=== PATIENT | female | born 1940 | race Caucasian/White ===

== ENCOUNTER 2016-09-25 14:45 | Emergency (ER) | payer MEDICARE, OTHER ==
[2016-09-25 19:21] LABS: Hematocrit 39 % (35-47); Hemoglobin 13.3 g/dl (12.0-16.0); Mean Corpuscular HGB Conc 34 g/dl (31-36); Mean Corpuscular Hemoglobin 32 pg (27-31); Mean Corpuscular Volume 95 fL (80-97); Mean Platelet Volume 8 um3 (7.4-10.4); Red Blood Count 4.12 10^6/ul (4.0-5.4); Red Cell Distribution Width 14 % (10.5-15); White Blood Count 8.5 10^3/ul (3.5-10.8)
[2016-09-25 19:39] LABS: Albumin 4.2 g/dL (3.2-5.2); Calcium 9.8 mg/dL (8.6-10.3); EGFR African American 86.9 (>60); EGFR Non-African American 67.6 (>60); Globulin 2.6 g/dL (2-4); Potassium 3.9 mmol/L (3.5-5.0); Total Bilirubin 0.3 mg/dL (0.2-1.0); Total Protein 6.8 g/dL (6.4-8.9)
[2016-09-25 20:32] VITALS: BP 162/96
--- NOTE | 2016-09-25 21:52 | ED ---
Desmond Steven Erika, scribed for True Miller MD on 09/25/16 at 1925 . GI/ HPI - HPI Summary HPI Summary: Patient is a 76-year-old female presenting to the ED with a CC of rectal bleeding starting 2 days ago. Pt reports that she has not noted blood in her stool, but notes blood in the toilet bowel with a BM and notes blood when wiping after a stool. She denies rectal pain or abdominal pain. She does note some recent constipation and straining. Pt takes a daily aspirin, but no other blood thinners. Hx colonoscopy January [address] Lozada - nothing abnormal was found. - History of Current Complaint Chief Complaint: EDRectalPain Time Seen by Provider: 09/25/16 18:38 Stated Complaint: RECTAL BLEEDING Hx Obtained From: Patient Onset/Duration: Started Days Ago, Atraumatic, Still Present Timing: Intermittent - with BMs Severity: Moderate Pain Intensity: 0 Associated Signs and Symptoms: Positive: Bright Red Blood w/Stool. Negative: Rectal Pain, Abdominal Pain Aggravating Factor(s): Straining - possibly Alleviating Factor(s): Nothing - Allergy/Home Medications Allergies/Adverse Reactions: Allergies Allergy/AdvReac Type Severity Reaction Status Date / Time No Known Allergies Allergy Verified 08/18/16 16:45 PMH/Surg Hx/FS Hx/Imm Hx Endocrine/Hematology History: Reports: Hx Anticoagulant Therapy - coumadin 4mg po daily, Hx Thyroid Disease, Other Endocrine/Hematological Disorders - Reynaud' s Syndrome Denies: Hx Diabetes, Hx Systemic Lupus Erythematosus Cardiovascular History: Reports: Hx Angina, Hx Coronary Artery Disease - STENT 1992, Hx Hypercholesterolemia, Hx Hypertension, Hx Pacemaker/ICD, Hx Valvular Heart Disease - MITRAL VALVE Denies: Hx Congestive Heart Failure Respiratory History: Reports: Hx Chronic Obstructive Pulmonary Disease (COPD) Denies: Hx Asthma GI History: Reports: Hx Gastroesophageal Reflux Disease, Other GI Disorders - Acalasia w/ esophageal surgery History: Denies: Hx Dialysis, Hx Renal Disease Musculoskeletal History: Denies: Hx Rheumatoid Arthritis Sensory History: Reports: Hx Cataracts - Has had surgery, Hx Contacts or Glasses Opthamlomology History: Reports: Hx Cataracts - Has had surgery, Hx Contacts or Glasses Neurological History: Reports: Hx Seizures - Cancer History Cancer Type, Location and Year: Right Breast Cancer over 10 years ago Hx Chemotherapy: Yes - in past Hx Radiation Therapy: Yes - in past - Surgical History Surgery Procedure, Year, and Place: lumpectomy right breast. surgery on esophaguscardiac. Pacemaker - Immunization History Date of Tetanus Vaccine: Unk Date of Influenza Vaccine: Fall 2012 Infectious Disease History: No Infectious Disease History: Denies: Traveled Outside the [place] in Last 30 Days - Family History Known Family History: Negative: Cardiac Disease - Social History Lives: With Family Alcohol Use: Daily Alcohol Amount: Glass of wine with dinner Hx Substance Use: No Substance Use Type: Reports: None Hx Tobacco Use: Yes Smoking Status (MU): Former Smoker - currently chews nicotine gum Type: Cigarettes Review of Systems Negative: Fever Gastrointestinal: Other - rectal bleeding Negative: Abdominal Pain All Other Systems Reviewed And Are Negative: Yes Physical Exam - Summary Physical Exam Summary: Constitutional: Comfortable, pleasant, alert HEENT: moist mucosa Neck: Soft, supple, no adenopathy, no edema Heart: S1, S2, RRR, no murmurs, rubs, or gallops. Noted that pt was tachycardic at 100 bpm on triage Lungs: clear, breathing comfortably, no wheezes, no rales Abdomen: Soft, flat, non-tender. Rectal: Exam chaperoned by Lena. No fissures, no obvious hemorrhoids. There is some evidence of older blood but no active bleeding. Extremities: No edema, calves non-tender Neurological: A&Ox3 Psychological: logical, coherent Triage Information Reviewed: Yes Vital Signs On Initial Exam: Initial Vitals Temp Pulse Resp BP Pulse Ox 98.4 F 100 16 109/59 98 09/25/16 15:36 09/25/16 15:36 09/25/16 15:36 09/25/16 15:36 09/25/16 15:36 Vital Signs Reviewed: Yes Diagnostics - Vital Signs Vital Signs Temp Pulse Resp BP Pulse Ox 09/25/16 15:36 98.4 F 100 16 109/59 98 - Laboratory Lab Results: Lab Results 09/25/16 09/25/16 09/25/16 Range/Units 18:50 18:50 18:50 WBC 8.5 (3.5-10.8) 10^3/ul RBC 4.12 (4.0-5.4) 10^6/ul Hgb 13.3 (12.0-16.0) g/dl Hct 39 (35-47) % MCV 95 (80-97) fL MCH 32 H (27-31) pg MCHC 34 (31-36) g/dl RDW 14 (10.5-15) % Plt Count 191 (150-450) 10^3/ul MPV 8 (7.4-10.4) um3 Neut % (Auto) 73.4 (38-83) % Lymph % (Auto) 16.8 L (25-47) % [place] % (Auto) 9.0 (1-9) % Eos % (Auto) 0.1 (0-6) % Baso % (Auto) 0.7 (0-2) % Absolute Neuts (auto) 6.3 (1.5-7.7) 10^3/ul Absolute Lymphs (auto) 1.4 (1.0-4.8) 10^3/ul Absolute Monos (auto) 0.8 (0-0.8) 10^3/ul Absolute Eos (auto) 0 (0-0.6) 10^3/ul Absolute Basos (auto) 0.1 (0-0.2) 10^3/ul Absolute Nucleated RBC 0 10^3/ul Nucleated RBC % 0 INR (Anticoag Therapy) 0.81 L (0.89-1.11) APTT 26.4 (26.0-36.3) seconds Sodium 133 (133-145) mmol/L Potassium 3.9 (3.5-5.0) mmol/L Chloride 99 L (101-111) mmol/L Carbon Dioxide 27 (22-32) mmol/L Anion Gap 7 (2-11) mmol/L BUN 23 (6-24) mg/dL Creatinine 0.82 (0.51-0.95) mg/dL Est GFR ( Amer) 86.9 (>60) Est GFR (Non-Af Amer) 67.6 (>60) BUN/Creatinine Ratio 28.0 H (8-20) Glucose 67 L (70-100) mg/dL Calcium 9.8 (8.6-10.3) mg/dL Total Bilirubin 0.30 (0.2-1.0) mg/dL AST 25 (13-39) U/L ALT 16 (7-52) U/L Alkaline Phosphatase 80 (34-104) U/L Total Protein 6.8 (6.4-8.9) g/dL Albumin 4.2 (3.2-5.2) g/dL Globulin 2.6 (2-4) g/dL Albumin/Globulin Ratio 1.6 (1-3) Result Diagrams: 09/25/16 18:50 09/25/16 18:50 Lab Statement: Any lab studies that have been ordered have been reviewed, and results considered in the medical decision making process. - EKG 19:01 EKG Interpretation: Paced rhythm at 95 bpm Re-Evaluation - Re-Evaluation First Eval Re-Evaluation Time: 19:58 Comment: Discussed lab results and discharge plan GIGU Course/Dx - Course Assessment/Plan: She has had GI bleed for the past 2 days. She does not describe severe or scary quantities of blood. Currently the blood that she does have in the rectal vault appears quite old. She has had a colonoscopy as early as January without any findings. She is on aspirin which we will have her hold right now. Noted tachycardia of 100 bpm on triage, but currently and without intervention, her heart rate is normal. Her H&H is very re-assuring. This is likely bleeding within the rectal vault, she has no pain or other symptoms. She will follow up with GI this week. Should she develop any more bleeding over the weekend, I informed her that I am here and would be happy to evaluate her. - Diagnoses Provider Diagnoses: Rectal bleeding Discharge - Discharge Plan Condition: Good Disposition: HOME Patient Education Materials: Rectal Bleeding (ED) Referrals: Demetrio Snell MD [Medical Doctor] - 5 Days The documentation as recorded by the Desmond watson Erika accurately reflects the service I personally performed and the decisions made by me, True Miller MD. Addendum entered and electronically signed by Nabila Hathaway PA 09/27/16 06: 45: ED Addendum Addendum: Stool occult blood present. Blood was present on exam and patient is aware and is following up with GI this week.
== END 2016-09-25 20:31 | disposition home or self-care (01) ==
LOC: ED 14:45
DX: K92.1 Melena (principal); J44.9 Chronic obstructive pulmonary disease, unspecified; Z87.891 Personal history of nicotine dependence; Z79.82 Long term (current) use of aspirin; Z79.01 Long term (current) use of anticoagulants; I25.10 Atherosclerotic heart disease of native coronary artery without angina pectoris; E78.00 Pure hypercholesterolemia, unspecified; K21.9 Gastro-esophageal reflux disease without esophagitis; Z85.3 Personal history of malignant neoplasm of breast
CPT/HCPCS: 36415; 80053; 82272; 85025; 85610; 85730; 93005; 99283

== ENCOUNTER 2016-10-20 12:04 | Emergency (ER) | payer MEDICARE, OTHER ==
--- NOTE | 2016-10-20 12:43 | ED ---
Head Injury - HPI Summary HPI Summary: Patient presents for evaluation of facial injury. Patient was feeling well and fell down. She has not had any specific complaints, but does not recall preceding events. Denies LOC, N, V, WALLACE diplopia. 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 Machine Operator - Mechanism Of Injury: Fall From A Standing Position Onset/Duration: Started Minutes Ago Onset of Pain: Immediate Severity Currently: None Severity Initially: Mild Pain Intensity: 4 - Allergies/Home Medications Allergies/Adverse Reactions: Allergies Allergy/AdvReac Type Severity Reaction Status Date / Time No Known Allergies Allergy Verified 08/18/16 16:45 PMH/Surg Hx/FS Hx/Imm Hx Endocrine/Hematology History: Reports: Hx Anticoagulant Therapy - coumadin 4mg po daily, Hx Thyroid Disease, Other Endocrine/Hematological Disorders - Reynaud' s Syndrome Denies: Hx Diabetes, Hx Systemic Lupus Erythematosus Cardiovascular History: Reports: Hx Angina, Hx Coronary Artery Disease - STENT 1992, Hx Hypercholesterolemia, Hx Hypertension, Hx Pacemaker/ICD, Hx Valvular Heart Disease - MITRAL VALVE Denies: Hx Congestive Heart Failure Respiratory History: Reports: Hx Chronic Obstructive Pulmonary Disease (COPD) Denies: Hx Asthma GI History: Reports: Hx Gastroesophageal Reflux Disease, Other GI Disorders - Acalasia w/ esophageal surgery History: Denies: Hx Dialysis, Hx Renal Disease Musculoskeletal History: Denies: Hx Rheumatoid Arthritis Sensory History: Reports: Hx Cataracts - Has had surgery, Hx Contacts or Glasses Opthamlomology History: Reports: Hx Cataracts - Has had surgery, Hx Contacts or Glasses Neurological History: Reports: Hx Seizures - Cancer History Cancer Type, Location and Year: Right Breast Cancer over 10 years ago Hx Chemotherapy: Yes - in past Hx Radiation Therapy: Yes - in past - Surgical History Surgery Procedure, Year, and Place: lumpectomy right breast. surgery on esophaguscardiac. Pacemaker - Immunization History Date of Tetanus Vaccine: Unk Date of Influenza Vaccine: Fall 2012 Infectious Disease History: No Infectious Disease History: Denies: Traveled Outside the [place] in Last 30 Days - Family History Known Family History: Negative: Cardiac Disease - Social History Alcohol Use: Daily Alcohol Amount: Glass of wine with dinner Hx Substance Use: No Substance Use Type: Reports: None Hx Tobacco Use: Yes Smoking Status (MU): Former Smoker - currently chews nicotine gum Type: Cigarettes Review of Systems Negative: Fever, Chills Negative: Blurred Vision, Diplopia Cardiovascular: Negative Negative: Palpitations, Chest Pain Respiratory: Negative Negative: Shortness Of Breath Gastrointestinal: Negative Negative: Abdominal Pain Musculoskeletal: Negative Negative: Arthralgia Negative: Headache, Weakness, Paresthesia, Numbness, Syncope All Other Systems Reviewed And Are Negative: Yes Physical Exam Triage Information Reviewed: Yes Vital Signs On Initial Exam: Initial Vitals Temp Pulse Resp BP Pulse Ox 99.6 F 100 18 153/92 95 10/20/16 12:23 10/20/16 12:23 10/20/16 12:23 10/20/16 12:23 10/20/16 12:23 Vital Signs Reviewed: Yes Appearance: Positive: Well-Appearing, No Pain Distress, Well-Nourished Skin: Positive: Warm, Skin Color Reflects Adequate Perfusion, Dry, Other - 1 cm transverse apex of chin laceration through epidermis/dermis. No surrounding crepitus. Nontender L chest wall at pacemaker site. Head/Face: Positive: Normal Head/Face Inspection. Negative: TMJ Tenderness Eyes: Positive: Normal, EOMI, NATHEN ENT: Positive: Normal ENT inspection, Hearing grossly normal, Pharynx normal Neck: Positive: Supple Respiratory/Lung Sounds: Positive: Clear to Auscultation, Breath Sounds Present Cardiovascular: Positive: Normal, RRR, Pulses are Symmetrical in both Upper and Lower Extremities Abdomen Description: Positive: Nontender, No Organomegaly, Soft Musculoskeletal: Positive: Normal, Strength/ROM Intact Neurological: Positive: Normal, Sensory/Motor Intact, Alert, Oriented to Person Place, Time, CN Intact II-III, Reflexes Intact, Unable to Assess Gait, Other - No pain with passive ROM of upper and lower extremity limbs. Procedures - Laceration/Wound Repair 1 Location: face Description: Linear Anesthesia: Local - 0.5 cc of 1% Length, Depth and Shape: 1 cm transverse laceration through epidermis, dermis on the apex of chin. Betadine Prep?: Yes Irrigated w/ Saline (ccs): 20 Laceration/Wound Explored: clean Closure: Single Layer - Plain Gut 6-0 with 3 running sutures Debridement: minimal Number of Sutures: 3 Layer Closure?: No Sterile Dressing Applied?: Yes Diagnostics - Vital Signs Vital Signs Temp Pulse Resp BP Pulse Ox 10/20/16 12:23 99.6 F 100 18 153/92 95 - Laboratory Result Diagrams: 10/20/16 12:10 10/20/16 12:10 Lab Statement: Any lab studies that have been ordered have been reviewed, and results considered in the medical decision making process. - EKG No standard instances Cardiac Rate: NL EKG Rhythm: Sinus Rhythm ST Segment: Normal Ectopy: None EKG Comparison: No Significant Change - No change from Jul 2016. Head Injury Course/Dx - Diagnoses Differential Diagnosis/HQI/PQRI: Cerebral Contusion, Cervical Sprain, Concussion Without LOC, Contusion, Intracranial Bleed, Skull Fracture, Other - Unclear if this was a mechanical fall, but will CT head and neck first to evaluate for occult fx or ICH. is en route and will discuss with him afterwards to determine need for further evaluation of other medical cause of the fall. Provider Diagnoses: Facial laceration - Physician Notifications Discussed Care Of Patient With: Dr. Aponte recommended no change to regimen and office Fu with Dr. Shah. Discharge - Discharge Plan Condition: Improved Disposition: HOME Patient Education Materials: Facial Laceration (ED) Referrals: Liane Shah MD [Medical Doctor] - Tanmay Joseph MD [Primary Care Provider] -
--- NOTE | 2016-10-20 13:00 | RAD ---
HISTORY: Trauma, syncope COMPARISONS: August 18, 2016 TECHNIQUE: Multiple contiguous axial CT scans were obtained of the head without intravenous contrast. FINDINGS: HEMORRHAGE/INFARCT: There is no hemorrhage or acute infarct. MASSES/SHIFT: There is no mass or shift. EXTRA-AXIAL SPACES: There are no extra-axial fluid collections. SULCI AND VENTRICLES: The sulci and ventricles are normal in size and position for the patient's stated age. CEREBRUM: There is hypoattenuation of the periventricular and subcortical white matter. BRAINSTEM: There are no focal parenchymal abnormalities. CEREBELLUM: There are no focal parenchymal abnormalities. VESSELS: The vessels are grossly normal. PARANASAL SINUSES: The paranasal sinuses are clear. ORBITS: The orbits are unremarkable. BONES AND SOFT TISSUE: There is expansion of the clivus and occipital skull with expansion and sclerosis of the right frontal and parietal skull OTHER: None IMPRESSION: 1. NO ACUTE INTRACRANIAL PATHOLOGY. 2. CHRONIC SMALL VESSEL ISCHEMIC CHANGES. 3. PAGETOID CHANGES OF THE SKULL.
--- NOTE | 2016-10-20 13:05 | RAD ---
HISTORY: Trauma, syncope COMPARISONS: May 05, 2012, CT of the chest dated June 07, 2014 TECHNIQUE: Multiple contiguous axial CT scans were obtained of the cervical spine without intravenous contrast, with coronal and sagittal multiplanar reformations. FINDINGS: BRAIN: The visualized brain is unremarkable CENTRAL CANAL: Evaluation of the central canal is limited on CT technique; however, there is no obvious canalicular mass or epidural hemorrhage. ALIGNMENT: There is trace anterolisthesis of C3 on C4. This is stable. VERTEBRAL BODIES: Again noted is expansion sclerosis of the occipital skull and clivus consistent with Paget's disease. There is no acute displaced fracture or dislocation. JOINTS: There is diffuse facet osteoarthritic change MUSCULATURE: Unremarkable INTERVERTEBRAL DISCS: There is diffuse loss of intervertebral disc height. AXIAL IMAGES: On axial images, there is neural foraminal narrowing at C5-C6 and C6-C7, similar to previous examinations. There is no osseous central canal stenosis. SOFT TISSUES: There is progressive pleural thickening of the right lung apex. The esophagus is patulous. OTHER: None. IMPRESSION: 1. NO ACUTE OSSEOUS INJURY TO THE CERVICAL SPINE. 2. DEGENERATIVE DISC DISEASE AND OSTEOARTHRITIS. 3. PAGET'S DISEASE OF THE SKULL BASE. 4. PROGRESSIVE RIGHT APICAL PLEURAL THICKENING. WHILE THIS MAY REFLECT PROGRESSION OF POSTRADIATION CHANGE, THIS IS INCOMPLETELY EVALUATED ON THE CURRENT EXAMINATION. RECOMMEND CORRELATION WITH CT OF THE CHEST IN THE NONACUTE SETTING
--- NOTE | 2016-10-20 14:06 | RAD ---
HISTORY: Chest pain COMPARISONS: September 18, 2015 VIEWS: 2: Frontal dual-energy and lateral views of the chest. FINDINGS: CARDIOMEDIASTINAL SILHOUETTE: The cardiomediastinal silhouette is normal. ROXANNE: The roxanne are normal. PLEURA: The costophrenic angles are sharp. No pleural abnormalities are noted. LUNG PARENCHYMA: There is hyperinflation with flattening of the diaphragm and expansion of the AP diameter of the chest. ABDOMEN: The upper abdomen is clear. There is no subphrenic gas. BONES AND SOFT TISSUES: No bone or soft tissue abnormalities are noted. OTHER: None. IMPRESSION: HYPERINFLATION, CONSISTENT WITH COPD. NO ACTIVE CARDIOPULMONARY DISEASE.
[2016-10-20 14:21] LABS: Hematocrit 44 % (35-47); Hemoglobin 14.8 g/dl (12.0-16.0); Mean Corpuscular HGB Conc 34 g/dl (31-36); Mean Corpuscular Hemoglobin 32 pg (27-31); Mean Corpuscular Volume 94 fL (80-97); Mean Platelet Volume 9 um3 (7.4-10.4); Red Blood Count 4.69 10^6/ul (4.0-5.4); Red Cell Distribution Width 14 % (10.5-15); White Blood Count 9.7 10^3/ul (3.5-10.8)
[2016-10-20 14:32] VITALS: BP 143/76
[2016-10-20 14:32] LABS: BUN/Creatinine Ratio 18.3 (8-20); Calcium 10.9 mg/dL (8.6-10.3); EGFR African American 75.2 (>60); EGFR Non-African American 58.5 (>60); Potassium 4.9 mmol/L (3.5-5.0)
== END 2016-10-20 14:55 | disposition home or self-care (01) ==
LOC: ED 12:04
DX: S01.81XA Laceration without foreign body of other part of head, initial encounter (principal); W19.XXXA Unspecified fall, initial encounter; Y93.9 Activity, unspecified; Y92.9 Unspecified place or not applicable; Y99.9 Unspecified external cause status
CPT/HCPCS: 12001; 36415; 70450; 71020; 72125; 80048; 80177; 85027; 93005; 99282

== ENCOUNTER 2017-03-21 19:55 | Observation (INO) | payer MEDICARE, OTHER ==
[2017-03-21] MEDS ORDERED: Morphine INJ* 2 MG/ML 1 ML SYRINGE IV ONE ×2 (20:32→21:35)
--- NOTE | 2017-03-21 20:43 | ED ---
Debbie Steven Rebecca, scribed for Caden Talavera MD on 03/21/17 at 203 . HPI Chest Pain - HPI Summary HPI Summary: Pt is a 76 y/o F who presents to ED c/o CP. Pain began approximately 2 hours ago at 1900 while sitting and has been intermittent since onset with episodes lasting minutes. Pain is in the left anterior region, stating it is "around the bottom of my heart." Pain is currently moderate, ranked 6/10 and characterized as sharp. Sx aggravated and alleviated by nothing, unchanged by deep breaths and movement. 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 Recent lobectomy to remove 1/3 of her lung, to treat lung CA, with Dr. Husain at [facility]. She was D/C 3 weeks ago and has a follow up appt with Dr. Dior tomorrow. - History of Current Complaint Chief Complaint: EDChestWallPain Time Seen by Provider: 03/21/17 20:25 Hx Obtained From: Patient, Family/Spare Fixer - Onset/Duration: Started Hours Ago - 2 hours ago, Still Present Time of Onset: 19:00 Timing: Intermittent, Lasting Minutes Current Severity: Moderate Pain Intensity: 6 Pain Scale Used: 0-10 Numeric Chest Pain Location: Left Anterior Character: Sharp/Stabbing Aggravating Factor(s): Nothing Alleviating Factor(s): Nothing Associated Signs and Symptoms: Positive: Other: - Elevated BP - Allergy/Home Medications Allergies/Adverse Reactions: Allergies Allergy/AdvReac Type Severity Reaction Status Date / Time No Known Allergies Allergy Verified 12/15/16 14:13 Bad table PMH/Surg Hx/FS Hx/Imm Hx Endocrine/Hematology History: Reports: Hx Anticoagulant Therapy - coumadin 4mg po daily, Hx Thyroid Disease, Other Endocrine/Hematological Disorders - Reynaud' s Syndrome Denies: Hx Diabetes, Hx Systemic Lupus Erythematosus Cardiovascular History: Reports: Hx Angina, Hx Coronary Artery Disease - STENT 1992, Hx Hypercholesterolemia, Hx Hypertension, Hx Pacemaker/ICD, Hx Valvular Heart Disease - MITRAL VALVE Denies: Hx Congestive Heart Failure Respiratory History: Reports: Hx Chronic Obstructive Pulmonary Disease (COPD) Denies: Hx Asthma GI History: Reports: Hx Gastroesophageal Reflux Disease, Other GI Disorders - Acalasia w/ esophageal surgery History: Denies: Hx Dialysis, Hx Renal Disease Musculoskeletal History: Denies: Hx Rheumatoid Arthritis Sensory History: Reports: Hx Cataracts - Has had surgery, Hx Contacts or Glasses Opthamlomology History: Reports: Hx Cataracts - Has had surgery, Hx Contacts or Glasses Neurological History: Reports: Hx Seizures - Cancer History Cancer Type, Location and Year: Right Breast Cancer over 10 years ago Hx Chemotherapy: Yes - in past Hx Radiation Therapy: Yes - in past - Surgical History Surgery Procedure, Year, and Place: lumpectomy right breast. surgery on esophaguscardiac. Pacemaker. 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 Positive: Chest Pain - Intermittent sharp pain All Other Systems Reviewed And Are Negative: Yes Physical Exam Triage Information Reviewed: Yes Vital Signs Reviewed: Yes Appearance: Positive: Pain Distress - mild discomfort, Thin, Cachectic Skin: Positive: Warm Head/Face: Positive: Normal Head/Face Inspection Eyes: Positive: NATHEN ENT: Positive: Hearing grossly normal Neck: Positive: Supple Respiratory/Lung Sounds: Positive: Decreased Breath Sounds - at bases Cardiovascular: Positive: RRR Abdomen Description: Positive: Nontender, Soft Bowel Sounds: Positive: Present Musculoskeletal: Positive: Strength/ROM Intact Neurological: Positive: Alert, Oriented to Person Place, Time Diagnostics - Laboratory Result Diagrams: 03/21/17 20:40 03/21/17 21:55 Lab Statement: Any lab studies that have been ordered have been reviewed, and results considered in the medical decision making process. - Radiology CXR Xray Interpretation: Positive (See Comments) - Elevated right hemidiaphragm for which a subpulmonic effusion is not excluded. Left lung field is clear. Pacemaker leads are in place. Right apical mass is present. Radiology Interpretation Completed By: Radiologist - CT CTA Chest CT Interpretation: No Acute Changes - No PE CT Interpretation Completed By: Radiologist - EKG 1 Cardiac Rate: NL - 70 bpm EKG Rhythm: Sinus Rhythm EKG Interpretation: No STEMI Re-Evaluation - Re-Evaluation First Eval Re-Evaluation Time: 23:42 Change: Unchanged Comment: Discussed plan to admit pt. Chest Pain Course/Dx - Course Assessment/Plan: Pt is a 76 y/o F who presents to ED c/o intermittent left anterior CP for 2 hours with episodes lasting minutes. Pain is currently moderate, ranked 6/10 and characterized as sharp. Sx unchanged by deep breaths and movement. 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 Recent lobectomy to remove 1/3 of her lung, to treat lung CA, at [facility]. She was D /C 3 weeks ago and has a follow up appt with Dr. Dior tomorrow. Troponin of 0.03, D-Dimer is >1050, Potassium of 2.2. CXR reveals: 'Elevated right hemidiaphragm for which a subpulmonic effusion is not excluded. Left lung field is clear. Pacemaker leads are in place. Right apical mass is present." EKG reveals no acute findings. CTA Chest shows no PE. Discussed care of pt with Dr. Styles, hospitalist, who accepts pt for admission. She will be admitted with Dx of hypokalemia and chest pain. She understands and agrees. - Diagnoses Provider Diagnoses: Hypokalemia, Chest pain - Provider Notifications Discussed Care Of Patient With: Brett Styles Time Discussed With Above Provider: 23:38 Instructed by Provider To: Admit As Inpatient - Accepts pt for admission. - Critical Care Time Critical Care Time: 30-74 min Discharge - Discharge Plan Condition: Fair Disposition: ADMITTED TO [facility] The documentation as recorded by the Debbie wtason Rebecca accurately reflects the service I personally performed and the decisions made by me, Caden Talavera MD.
[2017-03-21 20:50] LABS: Hematocrit 33 % (35-47); Mean Corpuscular HGB Conc 33 g/dl (31-36); Mean Corpuscular Hemoglobin 33 pg (27-31); Mean Corpuscular Volume 98 fL (80-97); Mean Platelet Volume 7 um3 (7.4-10.4); Red Blood Count 3.37 10^6/ul (4.0-5.4); Red Cell Distribution Width 14 % (10.5-15); White Blood Count 6.1 10^3/ul (3.5-10.8)
[2017-03-21] MEDS: NS 0.9% 1000 ML* 1,000 ML IV ONE (21:00)
[2017-03-21 21:04] LABS: ALT 23 U/L (7-52); Albumin 3.3 g/dL (3.2-5.2); Alkaline Phosphatase 90 U/L (34-104); BUN/Creatinine Ratio 13.9 (8-20); Blood Urea Nitrogen 10 mg/dL (6-24); CO2 Carbon Dioxide 25 mmol/L (22-32); Calcium 9.3 mg/dL (8.6-10.3); Chloride 100 mmol/L (101-111); Creatine Kinase 28 U/L (10-223); EGFR Non-African American 78.5 (>60); Globulin 2.7 g/dL (2-4); Glucose 103 mg/dL (70-100); Sodium 131 mmol/L (133-145)
[2017-03-21 21:07] LABS: Troponin I 0.03 ng/mL (<0.04)
[2017-03-21] MEDS ORDERED: Iohexol 350* (CONTRAST) 500 ML MDV IV ONE (21:22)
[2017-03-21 21:28] LABS: Anion Gap 6 mmol/L (2-11)
--- NOTE | 2017-03-21 21:36 | RAD ---
Indication: Chest pain. Comparison is made with previous exam dated October 20, 2016. 2 views of the chest demonstrates no mediastinal shift. Heart is of normal size and configuration. Pacemaker leads are in place. Elevated right hemidiaphragm is noted. Subpulmonic effusion is not excluded. Right apical pleural thickening is noted. No alveolar consolidation is noted. Right apical mass is noted. IMPRESSION: Elevated right hemidiaphragm for which a subpulmonic effusion is not excluded. Left lung field is clear. Pacemaker leads are in place. Right apical mass is present.
[2017-03-21] MEDS ORDERED: Potassium Chloride LIQUID* 20 MEQ PACKET PO ONE (22:55)
[2017-03-21] MEDS: KCL 10 MEQ/50 ML IVPREMIX* 10 MEQ/50 ML BAG IV SCH (23:20)
[2017-03-21] MEDS ORDERED: Acetaminophen TAB* 325 MG PO PRN (23:50)
[2017-03-21] MEDS ORDERED: Albuterol 2.5 MG/3 ML NEB.SOL* (0.083%) INH PRN (23:51)
[2017-03-21] MEDS ORDERED: Ondansetron INJ* 2 MG/ML VIAL IV PRN (23:51)
[2017-03-21] MEDS ORDERED: HYDROmorphone* 1 MG/ML 1 ML SYR IV PRN (23:51)
[2017-03-21] MEDS ORDERED: Melatonin (NF) 3 MG TAB PO PRN (23:51)
[2017-03-21] MEDS ORDERED: oxyCODONE TAB* 5 MG TAB PO PRN (23:51)
--- NOTE | 2017-03-21 23:56 | HP ---
H&P (Free Text) History and Physical: PCP: Marisel Joseph MD Date/Time of Evaluation: 03/21/2017 2345 CC: R leg pain & swelling HPI: Mr Honeycutt is a 76YO female HX lung CA s/p R lobectomy 02/24/2017 at [facility] who was sitting at home this evening when she experienced the sudden onset of mod/sev sharp, non-radiating R inferior chest pain. There was some mild light- headedness, but no SOB, N/V, palpitations, sweats, or other issues. There were no noted exacerbating or alleviating factors. PMedHx lung CA achalasia epilepsy HTN hypothyroidism CAD/MS/stent x2 Medications Nursing to reconcile. Allergies No Known Allergies Allergy (Verified 12/15/16 14:13) PSurgHx R lobectomy 02/24/2017 at [facility] for lung CA achalasia surgery cardiac stent tonsillectomy SocHx: quit smoking ~12years ago, 1 glass wine daily, denies recreational drugs ; lives with her ; full code status FamHx: Mother & Father both passed in their 40s of CAD. ROS: as above, otherwise reviewed and all were negative Constitutional: NAD, normally developed, cachectic elderly white female vitals: Vital Signs Temp 37.3 C 03/21/17 21:01 Pulse 80 03/21/17 22:30 Resp 18 03/21/17 21:49 BP 153/68 03/22/17 01:00 Pulse Ox 98 03/21/17 22:30 Intake & Output 03/21/17 03/21/17 03/22/17 11:59 23:59 11:59 Intake Total 1025 Balance 1025 Weight 39.009 kg Intake: IV Fluids 1025 HEENM: atraumatic; sclera/conjunctiva: non-icteric/clear; blephara: sunken; hearing: clinically intact; oropharynx: clear, mucosa moist Neck: soft tissue: non-tender; thyroid: normal Pulmonary: diminished R base, fair to good aeration, no accessory muscle use CV: RR/RR, normal S1S2, no carotid bruit, no femoral bruit, no abdominal bruit, no jugular venous distention, 2+ B DP/PT, no edema Abdominal: soft, non-distended, non-tender, no rebound/guarding/rigidity, normoactive bowel sounds, no hepatosplenomegaly or masses, no costovertebral angle tenderness Musculoskeletal: general: grossly intact; gait: unsteady Integumental: normal appearance and texture of exposed skin Psychiatric orientation: AA&O to PPS affect: calm mood: cooperative eye contact: fair content: reliable responses: timely insight: good to fair Testing: Lab Results 03/21/17 03/21/17 03/21/17 Range/Units 20:40 20:40 20:40 WBC 6.1 (3.5-10.8) 10^3/ul RBC 3.37 L (4.0-5.4) 10^6/ul Hgb 11.0 L (12.0-16.0) g/dl Hct 33 L (35-47) % MCV 98 H (80-97) fL MCH 33 H (27-31) pg MCHC 33 (31-36) g/dl RDW 14 (10.5-15) % Plt Count 230 (150-450) 10^3/ul MPV 7 L (7.4-10.4) um3 Neut % (Auto) 68.5 (38-83) % Lymph % (Auto) 18.4 L (25-47) % Bartholomew % (Auto) 8.6 (1-9) % Eos % (Auto) 1.6 (0-6) % Baso % (Auto) 2.9 H (0-2) % Absolute Neuts (auto) 4.2 (1.5-7.7) 10^3/ul Absolute Lymphs (auto) 1.1 (1.0-4.8) 10^3/ul Absolute Monos (auto) 0.5 (0-0.8) 10^3/ul Absolute Eos (auto) 0.1 (0-0.6) 10^3/ul Absolute Basos (auto) 0.2 (0-0.2) 10^3/ul Absolute Nucleated RBC 0 10^3/ul Nucleated RBC % 0.1 D-Dimer, Quantitative > 1050 H (Less Than 230) ng/mL Sodium 131 L (133-145) mmol/L Potassium TNP Chloride 100 L (101-111) mmol/L Carbon Dioxide 25 (22-32) mmol/L Anion Gap 6 (2-11) mmol/L BUN 10 (6-24) mg/dL Creatinine 0.72 (0.51-0.95) mg/dL Est GFR ( Amer) 101.0 (>60) Est GFR (Non-Af Amer) 78.5 (>60) BUN/Creatinine Ratio 13.9 (8-20) Glucose 103 H (70-100) mg/dL Lactic Acid (0.5-2.0) mmol/L Calcium 9.3 (8.6-10.3) mg/dL Total Bilirubin 0.30 (0.2-1.0) mg/dL AST TNP ALT 23 (7-52) U/L Alkaline Phosphatase 90 (34-104) U/L Total Creatine Kinase 28 (10-223) U/L Troponin I 0.03 (<0.04) ng/mL B-Natriuretic Peptide ( - 100) pg/mL Total Protein 6.0 L (6.4-8.9) g/dL Albumin 3.3 (3.2-5.2) g/dL Globulin 2.7 (2-4) g/dL Albumin/Globulin Ratio 1.2 (1-3) 03/21/17 03/21/17 03/21/17 Range/Units 20:40 20:40 21:55 WBC (3.5-10.8) 10^3/ul RBC (4.0-5.4) 10^6/ul Hgb (12.0-16.0) g/dl Hct (35-47) % MCV (80-97) fL MCH (27-31) pg MCHC (31-36) g/dl RDW (10.5-15) % Plt Count (150-450) 10^3/ul MPV (7.4-10.4) um3 Neut % (Auto) (38-83) % Lymph % (Auto) (25-47) % Bartholomew % (Auto) (1-9) % Eos % (Auto) (0-6) % Baso % (Auto) (0-2) % Absolute Neuts (auto) (1.5-7.7) 10^3/ul Absolute Lymphs (auto) (1.0-4.8) 10^3/ul Absolute Monos (auto) (0-0.8) 10^3/ul Absolute Eos (auto) (0-0.6) 10^3/ul Absolute Basos (auto) (0-0.2) 10^3/ul Absolute Nucleated RBC 10^3/ul Nucleated RBC % D-Dimer, Quantitative (Less Than 230) ng/mL Sodium (133-145) mmol/L Potassium 2.2 L* Chloride (101-111) mmol/L Carbon Dioxide (22-32) mmol/L Anion Gap (2-11) mmol/L BUN (6-24) mg/dL Creatinine (0.51-0.95) mg/dL Est GFR ( Amer) (>60) Est GFR (Non-Af Amer) (>60) BUN/Creatinine Ratio (8-20) Glucose (70-100) mg/dL Lactic Acid 1.2 (0.5-2.0) mmol/L Calcium (8.6-10.3) mg/dL Total Bilirubin (0.2-1.0) mg/dL AST 13 ALT (7-52) U/L Alkaline Phosphatase (34-104) U/L Total Creatine Kinase (10-223) U/L Troponin I (<0.04) ng/mL B-Natriuretic Peptide 276 H ( - 100) pg/mL Total Protein (6.4-8.9) g/dL Albumin (3.2-5.2) g/dL Globulin (2-4) g/dL Albumin/Globulin Ratio (1-3) ECG, personally reviewed: NSR rate 70, no ischemia CXR, personally reviewed: IMPRESSION: Elevated right hemidiaphragm for which a subpulmonic effusion is not excluded. Left lung field is clear. Pacemaker leads are in place. Right apical mass is present. CTA chest, personally reviewed: no PE, volume loss R lung w/ post-op effusion; official read pending Impression: 76F HX lung CA s/p R lobectomy 02/24/2017 presents with atypical chest pain for r/o ACS DIAGNOSIS & PLAN Primary chest pain r/o ACS : telemetry : trend troponin : supplemental oxygen : supportive care SOB : suspect 2nd post-operative state, post-op volume loss, & mod pleural effusion : supplemental oxygen : monitor R pleural effusion, post-op : no further work up or evaluation indicated Secondary achalasia : no acute issues epilepsy : review meds once reconciled HTN : review meds once reconciled hypothyroidism : review meds once reconciled CAD/MS/stent x2 : review meds once reconciled Admission Rational: CDU observation for r/o ACS DVTp: SCDs & heparin SQ Code Status: full HCP:
[2017-03-22] MEDS ORDERED: Metoprolol Tartrate TAB* 25 MG PO ONE (01:24)
[2017-03-22] MEDS ORDERED: Aspirin Low Dose CHEW TAB* 81 MG PO ONE (01:25)
[2017-03-22] MEDS: NS 0.9% 1000 ML* 1,000 ML IV ONE (01:57)
[2017-03-22] MEDS: KCL 10 MEQ/50 ML IVPREMIX* 10 MEQ/50 ML BAG IV SCH ×2 (02:45→04:37)
[2017-03-22] MEDS ORDERED: Potassium Chlor TAB* 20 MEQ TAB.ER PO ONE (03:00)
[2017-03-22 05:56] LABS: Hematocrit 34 % (35-47); Hemoglobin 11.1 g/dl (12.0-16.0); Mean Corpuscular HGB Conc 33 g/dl (31-36); Mean Corpuscular Hemoglobin 32 pg (27-31); Mean Corpuscular Volume 98 fL (80-97); Mean Platelet Volume 7 um3 (7.4-10.4); Red Blood Count 3.48 10^6/ul (4.0-5.4); Red Cell Distribution Width 14 % (10.5-15); White Blood Count 6.7 10^3/ul (3.5-10.8)
[2017-03-22] MEDS ORDERED: Heparin VIAL(*) 5000 UNITS/ML VIAL (FIVE THOUSAND) SUBCUT SCH (06:00)
[2017-03-22] MEDS ORDERED: Omeprazole CAP* 20 MG PO SCH (06:00)
[2017-03-22 06:13] LABS: BUN/Creatinine Ratio 11.5 (8-20); Calcium 8.6 mg/dL (8.6-10.3); EGFR African American 122.3 (>60); EGFR Non-African American 95.1 (>60); Potassium 5.4 mmol/L (3.5-5.0)
[2017-03-22 06:15] LABS: Troponin I 0.03 ng/mL (<0.04)
--- NOTE | 2017-03-22 07:42 | RAD ---
INDICATION: Chest pain. Short of breath. Evaluate for pulmonary embolus. COMPARISON: CT chest February 08, 2017 TECHNIQUE: Axial source images were obtained from the thoracic inlet to the hemidiaphragms following administration of [address] angiographic technique was utilized. Coronal and sagittal reconstructed images were acquired. CHEST FINDINGS: Neck/thyroid: The visualized neck to include the thyroid appear normal. Chest wall: There are no acute abnormalities of the bony thorax or chest wall. There is no supraclavicular, infraclavicular, or axillary lymphadenopathy. Lungs : There are postoperative changes in the right upper chest. There is atelectasis and there is loculated pleural fluid in the apex. There is a stable 7 mm nodule in the left lung base on reference image 151/258. There are underlying emphysematous changes. Cardiomediastinal structures: There is no CT evidence of acute pulmonary embolic disease. The heart is normal in size. There is no pericardial effusion. There is no evidence of aortic aneurysm or dissection. There is mild ectasia of the aortic root. There is no mediastinal or hilar adenopathy. The esophagus appears normal. Pleura : Moderate size left-sided dependent pleural effusion. Other: None. IMPRESSION: 1. Postoperative changes right hemithorax. Atelectasis in the right upper chest with loculated pleural fluid. Additional dependent pleural fluid in the right chest. 2. No CT evidence of acute pulmonary embolic disease.
[2017-03-22] MEDS ORDERED: Docusate CAP* 100 MG PO SCH (09:00)
[2017-03-22] MEDS ORDERED: Sertraline* 100 MG TAB PO SCH (10:00)
[2017-03-22] MEDS ORDERED: LORazepam TAB(*) 1 MG PO SCH (10:00)
[2017-03-22] MEDS ORDERED: Levothyroxine TAB* 25 MCG TAB PO SCH (10:00)
[2017-03-22] MEDS ORDERED: Aspirin EC Low Dose* 81 MG TAB.EC PO SCH (10:00)
[2017-03-22] MEDS ORDERED: Atorvastatin* 10 MG TAB PO SCH (10:00)
[2017-03-22] MEDS ORDERED: Sodium Chloride TAB* 1 GM PO SCH (10:00)
[2017-03-22] MEDS ORDERED: Multivitamins/Minerals TAB PO SCH (10:00)
[2017-03-22] MEDS ORDERED: Metoprolol Succinate XL TAB* 50 MG PO SCH (10:00)
[2017-03-22] MEDS ORDERED: levETIRAcetam TAB* 500 MG PO SCH (10:00)
[2017-03-22 11:29] VITALS: BP 157/68
--- NOTE | 2017-03-22 12:18 | DCNOTE ---
Patient seen this morning. No further chest pain. Feels well this morning, anxious to leave. On exam, thin, frail F, RRR, s1 and s2 present, no m/g/r, R chest with well healed surgical scar, chest with no TTP Unclear etiology of pain, ?MSK vs GI related. Cardiac work-up negative. Will discharge home today with outpatient f/u.
--- NOTE | 2017-03-23 01:33 | DS ---
CC: Dr. Joseph* DISCHARGE SUMMARY: DATE OF ADMISSION: 03/21/17 DATE OF DISCHARGE: 03/22/17 PRIMARY CARE PHYSICIAN: Dr. Joseph. PRINCIPAL DISCHARGE DIAGNOSIS: Chest pain likely due to musculoskeletal or GI etiology. SECONDARY DIAGNOSES: 1. History of lung cancer, status post recent right lobectomy. 2. Achalasia. 3. Epilepsy. 4. Hypertension. 5. Hypothyroidism. 6. Coronary artery disease. STUDIES DONE DURING HOSPITALIZATION: Chest x-ray, impression: Elevated right hemidiaphragm, for which a subpulmonic effusion is not excluded, left lung field is clear, pacemaker leads are in the right place, right apical mass is present. CT of the chest, impression: Postoperative changes, right hemithorax, atelectasis in the right upper chest with loculated pleural fluid, additional dependent pleural fluid in the right chest. No CT evidence of acute pulmonary embolic disease. DISCHARGE MEDICATION REGIMEN: 1. Atorvastatin 10 mg daily. 2. Vitamin D 1000 mg by mouth nightly. 3. Synthroid 25 mcg by mouth daily. 4. Toprol-XL 50 mg by mouth daily. 5. Multivitamin 1 tablet by mouth daily. 6. Sertraline 100 mg by mouth daily. 7. Keppra 500 mg by mouth 2 times daily. 8. Ambien 5 mg by mouth at bedtime. 9. Colace 50 mg by mouth daily. 10. Sodium chloride 1 tablet by mouth 4 times daily. 11. Aspirin 81 mg by mouth daily. 12. Ativan 1 mg by mouth 3 times daily. HISTORY OF PRESENT ILLNESS AND HOSPITAL SUMMARY: Please see the full history and physical by Dr. Brett Styles for full details. Briefly, Ms. Honeycutt is a 76- year-old female with a past medical history as above, including a recent right lobectomy for lung cancer, who presented to the hospital with sudden onset of chest pain. Pain was nonradiating. Due to her history, she was observed in the hospital overnight. Troponins were trended and remained negative. She was monitored on telemetry, with no acute issues. She was found to be hypokalemic and this was repleted, resulting in slight hyperkalemia. By the following morning, the patient's chest pain had completely resolved. Imaging, including chest x-ray and CT of the chest, showed no specific etiology for the chest pain. She will be discharged home with no change in her home medication regimen. She should follow up with Dr. Joseph as well as with her surgeons in [place]. She was ordered to have a repeat BMP done in the next few days to ensure her potassium normalizes. Total time spent on this discharge, 35 minutes. This is a summary of the hospitalization. Please see the full medical record for further details. [id number]/[facility] #: [id number] MTDD
== END 2017-03-22 13:19 | disposition home or self-care (01) ==
LOC: ED 19:55 → MEDTELE 23:43
PROVIDERS: ADMIT Hospitalist; ATTEND Hospitalist
DX: R07.9 Chest pain, unspecified (principal); Z85.118 Personal history of other malignant neoplasm of bronchus and lung; K22.0 Achalasia of cardia; G40.909 Epilepsy, unspecified, not intractable, without status epilepticus; I10 Essential (primary) hypertension; E03.9 Hypothyroidism, unspecified; I47.1 Supraventricular tachycardia; I25.10 Atherosclerotic heart disease of native coronary artery without angina pectoris; Z95.5 Presence of coronary angioplasty implant and graft; Z79.899 Other long term (current) drug therapy; Z87.891 Personal history of nicotine dependence; Z79.01 Long term (current) use of anticoagulants
CPT/HCPCS: 36415; 71020; 71275; 80048; 80053; 82550; 83605; 83880; 84484; 85025; 85027; 85379; 87899; 93005; 96365; 96366; 96375; 96376; 99291; A9270-GY; G0378; J1644; J2270; J3480

== ENCOUNTER 2017-10-19 12:57 | Emergency (ER) | payer MEDICARE, OTHER ==
[2017-10-19 13:59] LABS: Hematocrit 41 % (35-47); Hemoglobin 14.1 g/dl (12.0-16.0); Mean Corpuscular HGB Conc 35 g/dl (31-36); Mean Corpuscular Hemoglobin 33 pg (27-31); Mean Corpuscular Volume 95 fL (80-97); Mean Platelet Volume 10 um3 (7.4-10.4); Platelet Count 13 10^3/ul (150-450); Red Cell Distribution Width 14 % (10.5-15); White Blood Count 5.3 10^3/ul (3.5-10.8)
[2017-10-19 14:19] LABS: EGFR Non-African American 61.3 (>60)
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
[2017-10-19 14:49] LABS: ABS Basophils 0.1 10^3/ul (0-0.2); ABS Eosinophils 0 10^3/ul (0-0.6); ABS Lymphocytes 0.9 10^3/ul (1.0-4.8); ABS Monocytes 0.3 10^3/ul (0-0.8); ABS Nucleated RBC 0 10^3/ul; Eosinophil % 0.2 % (0-6); Lymphocyte % 17.3 % (25-47); Nucleated Red Blood Cells % 0.2
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
[2017-10-19 16:13] VITALS: BP 168/82
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
== END 2017-10-19 16:11 | disposition home or self-care (01) ==
LOC: ED 12:57
DX: S00.93XA Contusion of unspecified part of head, initial encounter (principal); S10.93XA Contusion of unspecified part of neck, initial encounter; D69.6 Thrombocytopenia, unspecified; V89.2XXA Person injured in unspecified motor-vehicle accident, traffic, initial encounter; Y92.9 Unspecified place or not applicable; J44.9 Chronic obstructive pulmonary disease, unspecified; K21.9 Gastro-esophageal reflux disease without esophagitis; Z85.3 Personal history of malignant neoplasm of breast; F32.9 Major depressive disorder, single episode, unspecified; Z79.01 Long term (current) use of anticoagulants; I73.00 Raynaud's syndrome without gangrene; E78.00 Pure hypercholesterolemia, unspecified; I10 Essential (primary) hypertension; Z95.810 Presence of automatic (implantable) cardiac defibrillator; I05.9 Rheumatic mitral valve disease, unspecified; Z87.891 Personal history of nicotine dependence
CPT/HCPCS: 36415; 70450; 71046; 72125; 80053; 85025; 85060; 99282

== ENCOUNTER 2017-10-29 15:17 | Inpatient (IN) | payer MEDICARE, OTHER ==
[2017-10-29] MEDS ORDERED: NS 0.9% 1000 ML*IV.FLUID IV ONE (16:26)
[2017-10-29 16:47] LABS: ABS Basophils 0.1 10^3/ul (0-0.2); ABS Eosinophils 0 10^3/ul (0-0.6); ABS Monocytes 0.9 10^3/ul (0-0.8); ABS Neutrophils 9.8 10^3/ul (1.5-7.7); ABS Nucleated RBC 0 10^3/ul; Eosinophil % 0.1 % (0-6); Hematocrit 37 % (35-47); Hemoglobin 12.4 g/dl (12.0-16.0); Lymphocyte % 8.3 % (25-47); Mean Corpuscular HGB Conc 34 g/dl (31-36); Mean Corpuscular Hemoglobin 32 pg (27-31); Mean Corpuscular Volume 94 fL (80-97); Mean Platelet Volume 8 um3 (7.4-10.4); Nucleated Red Blood Cells % 0.1; Platelet Count 198 10^3/ul (150-450); Red Blood Count 3.91 10^6/ul (4.0-5.4); Red Cell Distribution Width 13 % (10.5-15); White Blood Count 11.8 10^3/ul (3.5-10.8)
--- NOTE | 2017-10-29 17:01 | RAD ---
Indication: Confusion. Weakness. CT of the brain was performed without IV contrast. Comparison is made with previous exam dated October 19, 2017. Ventricular structures are midline. No midline shift is noted. The extra-axial spaces are unremarkable. Periventricular lucency consistent with chronic ischemic White matter change is noted. There is no evidence of intracranial mass or hemorrhage. No other high or low density lesions are identified. There is cortical thickening of the right calvaria Paget's disease. IMPRESSION: Chronic ischemic White matter change. No intracranial mass or hemorrhage is noted.
--- NOTE | 2017-10-29 17:10 | RAD ---
INDICATION: Weakness COMPARISON: October 19, 2017 TECHNIQUE: An AP portable view obtained at 1636 hours is submitted. FINDINGS: Bones/Soft Tissues: There is left-sided cardiac pacemaker. There is right axillary dissection Cardiomediastinal: The cardiomediastinal silhouette is normal. Lungs: There is hyperinflation. There is no focal infiltrate. Pleura: There are no pleural effusions. Other: None IMPRESSION: POSTOPERATIVE CHANGES. NO ACTIVE DISEASE.
[2017-10-29 17:34] LABS: INR 0.87 (0.77-1.02)
[2017-10-29 18:04] LABS: Urine Appearance Cloudy; Urine Blood Negative (Negative); Urine Color Yellow; Urine Ketones Negative (Negative); Urine Protein Negative (Negative); Urine Specific Gravity 1.014 (1.010-1.030); Urine Urobilinogen Negative (Negative)
[2017-10-29] MEDS ORDERED: Labetalol IV* 5 MG/ML 20 ML VIAL IV PUSH ONE (18:32)
[2017-10-29] MEDS ORDERED: Levofloxacin 500 MG IVPREMIX(* 500 MG/100 ML BAG IVPB ONE (18:32)
[2017-10-29] MEDS ORDERED: Iodixanol* (CONTRAST) 320 MG/ML 100 ML SDV IV ONE ×2 (20:45)
[2017-10-29] MEDS ORDERED: LORazepam INJ* 2 MG/ML 1 ML VIAL IV PUSH ONE (21:37)
[2017-10-29] MEDS ORDERED: LORazepam INJ* 2 MG/ML 1 ML VIAL ONE (21:38)
[2017-10-29] MEDS ORDERED: levETIRAcetam TAB* 500 MG PO ONE (22:55)
--- NOTE | 2017-10-29 23:03 | ED ---
Kasey Steven Gabriel, scribed for Nikos Crooks MD on 10/29/17 at 1630 . Complex/Multi-Sys Presentation - HPI Summary HPI Summary: This patient is a 77 year old F BIBA to [facility] after she claims to have fallen 2 days ago and is now experiencing right shoulder pain. Pt states the sidewalk was icy causing her to slip. She denies urinary symptoms, decreased PO intake, and nausea. Her family called and said they will arrive to accompany her but it has been over an hour and no one has showed up. They stated she has dysuria and nausea, this story is consistent with EMSs but the patient denies this. Pt appears confused and is slow to respond when questioned. When asked where she is she was correct but believed it was December and was unsure of the day. - History Of Current Complaint Chief Complaint: EDUrogenitalProblems Time Seen by Provider: 10/29/17 15:40 Hx Obtained From: Patient, Family/Csw, EMS Onset/Duration: Still Present Timing: Constant Severity Currently: Mild Severity Initially: Mild Associated Signs And Symptoms: Positive: Confusion, Other - fall and r shoulder pain. Negative: Nausea, Dysuria - Allergies/Home Medications Allergies/Adverse Reactions: Allergies Allergy/AdvReac Type Severity Reaction Status Date / Time No Known Allergies Allergy Verified 12/15/16 14:13 PMH/Surg Hx/FS Hx/Imm Hx Endocrine/Hematology History: Reports: Hx Anticoagulant Therapy - coumadin 4mg po daily, Hx Thyroid Disease, Other Endocrine/Hematological Disorders - Reynaud' s Syndrome Denies: Hx Diabetes, Hx Systemic Lupus Erythematosus Cardiovascular History: Reports: Hx Angina, Hx Coronary Artery Disease - STENT 1992, Hx Hypercholesterolemia, Hx Hypertension, Hx Pacemaker/ICD, Hx Valvular Heart Disease - MITRAL VALVE Denies: Hx Congestive Heart Failure Respiratory History: Reports: Hx Chronic Obstructive Pulmonary Disease (COPD) Denies: Hx Asthma GI History: Reports: Hx Gastroesophageal Reflux Disease, Other GI Disorders - Acalasia w/ esophageal surgery History: Denies: Hx Dialysis, Hx Renal Disease Musculoskeletal History: Denies: Hx Rheumatoid Arthritis Sensory History: Reports: Hx Cataracts - Has had surgery, Hx Contacts or Glasses Denies: Hx Hearing Aid Opthamlomology History: Reports: Hx Cataracts - Has had surgery, Hx Contacts or Glasses Neurological History: Reports: Hx Seizures Psychiatric History: Reports: Hx Depression - Cancer History Cancer Type, Location and Year: Right Breast Cancer over 10 years ago Hx Chemotherapy: Yes - in past Hx Radiation Therapy: Yes - in past - Surgical History Surgery Procedure, Year, and Place: lumpectomy right breast. surgery on esophaguscardiac. Pacemaker. Lobectomy - Immunization History Date of Tetanus Vaccine: Unk Date of Influenza Vaccine: Fall 2012 Infectious Disease History: No Infectious Disease History: Denies: Traveled Outside the [place] in Last 30 Days - Family History Known Family History: Negative: Cardiac Disease, Respiratory Disease, Seizure Disorder - Social History Lives: With Family Alcohol Use: Daily Alcohol Amount: Glass of wine with dinner Hx Substance Use: No Substance Use Type: Reports: None Hx Tobacco Use: Yes Smoking Status (MU): Former Smoker Type: Cigarettes Review of Systems Positive: Other - fall Negative: Nausea Positive: no symptoms reported Positive: Other - R shoulder pain All Other Systems Reviewed And Are Negative: Yes Physical Exam - Summary Physical Exam Summary: VITAL SIGNS: Reviewed. GENERAL: Patient is a cachectic elderly female who is lying comfortable in the stretcher. Patient is ill looking and lethargic HEAD AND FACE: No signs of trauma. No ecchymosis, hematomas or skull depressions. No sinus tenderness. EYES: PERRLA, EOMI x 2, No injected conjunctiva, no nystagmus. EARS: Hearing grossly intact. Ear canals and tympanic membranes are within normal limits. MOUTH: dry oral mucosa NECK: Supple, trachea is midline, no adenopathy, no JVD, no carotid bruit, no c- spine tenderness, neck with full ROM. CHEST: Symmetric, no tenderness at palpation LUNGS: Clear to auscultation bilaterally. No wheezing or crackles. CVS: Regular rate and rhythm, S1 and S2 present, no murmurs or gallops appreciated. ABDOMEN: Soft, non-tender. No signs of distention. No rebound no guarding, and no masses palpated. Bowel sounds are normal. EXTREMITIES: FROM in all major joints, no edema, no cyanosis or clubbing. NEURO: Alert . No acute neurological deficits. Speech is quiet and follows commands. SKIN: Dry and warm Triage Information Reviewed: Yes Vital Signs On Initial Exam: Initial Vitals Temp Pulse Resp BP Pulse Ox 97.1 F 70 16 158/72 94 10/29/17 15:27 10/29/17 15:27 02/23/18 15:27 10/29/17 15:27 10/29/17 15:27 Vital Signs Reviewed: Yes Diagnostics - Vital Signs Vital Signs Temp Pulse Resp BP Pulse Ox 10/29/17 15:27 97.1 F 70 16 158/72 94 - Laboratory Result Diagrams: 10/29/17 16:24 10/29/17 16:24 Lab Statement: Any lab studies that have been ordered have been reviewed, and results considered in the medical decision making process. - Radiology CXR Radiology Interpretation Completed By: Radiologist - POSTOPERATIVE CHANGES. NO ACTIVE DISEASE. ED physician has reviewed this radiology report. - CT CT brain CT Interpretation Completed By: Radiologist Re-Evaluation - Re-Evaluation First Eval Re-Evaluation Time: 19:31 Change: Unchanged Comment: Pt could not have her MRI due to her pace maker. Complex Multi-Symp Course/Dx Assessment/Plan: This patient is a 30 year old F presenting to [facility] with a chief complaint of flu like illness that began a week ago. The patient rates the pain 4/10 in severity. Patient reports body aches, stabbing pain in between her shoulder blades, SOB, chills, fever of 102, and body tremors. Patient was seen yesterday at [place] and got a CXR that showed she did not have PNA so she was given Abx and discharged. Two weeks ago she was given a clinical diagnosis of the flu and took a full course of Tamiflu that was finished on 10-21-17. Since she finished the medication her symptoms have returned. An EKG reveals non specific t wave in inferior leads. CXR reveals, per radiologist, no active disease. Test results with no significant abnormalities. Pt was negative for influenza A and B. In the ED course the patient was given IV fluids and toradol. The patient will be signed out to Dr. Brownlee awaiting CT. - Diagnoses Provider Diagnoses: Change in mental status Discharge - Discharge Plan Condition: Good Disposition: OTHER Discharge Disposition Comment: Pt will be signed out to Dr. Brownlee Referrals: Tanmay Joseph MD [Primary Care Provider] - The documentation as recorded by the Kasey watson Gabriel accurately reflects the service I personally performed and the decisions made by me, Nikos Crooks MD.
--- NOTE | 2017-10-30 00:53 | ED ---
I, Jeanette Bello, scribed for Shmuel Brownlee on 10/30/17 at 0047 . Progress - Progress Note Progress Note: This patient was signed out from Dr. Crooks, pending disposition, awaiting CTA. 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 Malignant degeneration of the calvarium is not excluded. In general the finds appear stable. No intracranial or extracranial large arterial occlusion. No hemodynamically significant stenosis of the extracranial internal carotid arteries. The patients condition is stable and will be admitted to Dr. Styles with Dx of altered mental status. 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 Malignant degeneration of the calvarium is not excluded. In general the finds appear stable. No intracranial or extracranial large arterial occlusion. No hemodynamically significant stenosis of the extracranial internal carotid arteries. Re-Evaluation - Re-Evaluation First Eval Re-Evaluation Time: 19:31 Change: Unchanged Comment: Pt could not have her MRI due to her pace maker. Course/Dx - Diagnoses Provider Diagnoses: Change in mental status - Provider Notifications Discussed Care Of Patient With: Brett Styles Time Discussed With Above Provider: 12:31 Instructed by Provider To: Admit As Inpatient The documentation as recorded by the Ace watson Sixian accurately reflects the service I personally performed and the decisions made by , Shmuel Brownlee.
[2017-10-30] MEDS ORDERED: Melatonin (NF) 3 MG TAB PO PRN (01:45)
[2017-10-30] MEDS ORDERED: Albuterol 2.5 MG/3 ML NEB.SOL* (0.083%) INH PRN (01:45)
[2017-10-30] MEDS ORDERED: Ondansetron INJ* 2 MG/ML VIAL IV PRN (01:46)
--- NOTE | 2017-10-30 01:58 | HP ---
H&P (Free Text) History and Physical: PCP: Marisel Joseph MD Oncology: Joaquina Dior MD Neurology: Mary Shah MD Date/Time of Evaluation: 10/30/2017 0115 CC: confusion HPI: Mr Honeycutt is a 77YO female HX lung CA s/p partial pneumonectomy February 2017 who "hasn't been right" since her surgery per her . He states that her forgetfulness and confusion have accelerated over the last month and her during this time her handwriting has become illegible. She has been having increasing falls and gait instability as well. Her denies any recent changes in medications. During my evaluation she is quite confused and unable to contribute reliably to this history. She is oriented to person, place, & year, but not month or situation. She states she was brought in tonight for headaches , but denies having one now. There is no report of F/C, sweats, cough, congestion, N/V, diarrhea, chest pain, SOB, palpitations, focal W/N/T, slurred speech, change in vision, or other issues. ED evaluation is unenlightening. PMedHx lung CA achalasia epilepsy HTN HLD hypothyroidism CAD/PR/stent x2 Ambulatory Orders Nursing to reconcile. Aspirin Low Dose CHEW TAB* [Aspirin Low Dose TAB*] 81 mg PO QAM 08/14/12 Multivitamins/Minerals TAB* [Theragran/minerals TAB*] 1 tab PO DAILY 08/14/12 Levothyroxine TAB* [Synthroid 25 MCG TAB*] 25 mcg PO DAILY 05/21/14 Cholecalciferol TAB* [Vitamin D TAB*] 1,000 mg PO QPM 01/07/15 Atorvastatin* [Lipitor*] 10 mg PO DAILY 05/19/16 Metoprolol Succinate XL TAB* [Toprol XL TAB*] 50 mg PO DAILY 05/19/16 Sertraline* [Zoloft*] 100 mg PO DAILY 05/19/16 Docusate Sodium [Colace Clear] 50 mg PO QAM 03/21/17 LORazepam TAB(*) [Ativan TAB(*)] 1 mg PO TID MDD 3 03/21/17 Sodium Chloride 1 tab PO QID 03/21/17 Zolpidem Tartrate [Ambien] 5 mg PO BEDTIME 03/21/17 levETIRAcetam [Keppra 500] 500 mg PO BID 03/21/17 Allergies No Known Allergies Allergy (Verified 12/15/16 14:13) PSurgHx R lobectomy 02/24/2017 at [facility] for lung CA achalasia surgery cardiac stent tonsillectomy SocHx: quit smoking >10 years ago, ~1 glass wine daily, denies recreational drugs; lives with her ; full code status FamHx: Mother & Father both passed in their 40s of CAD. ROS: as above, otherwise reviewed and all were negative Constitutional: NAD, normally developed, cachectic elderly white female vitals: Vital Signs Temp 36.2 C 10/29/17 15:27 Pulse 77 10/29/17 21:30 Resp 18 10/29/17 21:43 BP 135/60 10/29/17 21:30 Pulse Ox 94 10/29/17 21:30 Intake & Output 10/29/17 10/29/17 10/30/17 11:59 23:59 11:59 Intake Total 1270 Balance 1270 Weight 39.009 kg Intake: IV Fluids 1270 HEENM: atraumatic; sclera/conjunctiva: non-icteric/clear; blephara: sunken; hearing: clinically intact; oropharynx: clear, mucosa moist Neck: soft tissue: non-tender; thyroid: normal Pulmonary: diminished B, fair to good aeration, no accessory muscle use CV: RR/RR, normal S1S2, no carotid bruit, no femoral bruit, no abdominal bruit, no jugular venous distention, 2+ B DP/PT, no edema Abdominal: soft, non-distended, non-tender, no rebound/guarding/rigidity, normoactive bowel sounds, no hepatosplenomegaly or masses, no costovertebral angle tenderness Musculoskeletal: general: grossly intact, no tenderness with palpation Integumental: normal appearance and texture of exposed skin Psychiatric orientation: AA&O to person, place, & year, but not month or situation affect: mildly anxious/agitated mood: cooperative eye contact: fair content: unreliable responses: timely insight: poor Testing: Lab Results 10/29/17 10/29/17 10/29/17 Range/Units 16:24 16:24 16:24 WBC 11.8 H (3.5-10.8) 10^3/ul RBC 3.91 L (4.0-5.4) 10^6/ul Hgb 12.4 (12.0-16.0) g/dl Hct 37 (35-47) % MCV 94 (80-97) fL MCH 32 H (27-31) pg MCHC 34 (31-36) g/dl RDW 13 (10.5-15) % Plt Count 198 (150-450) 10^3/ul MPV 8 (7.4-10.4) um3 Neut % (Auto) 83.2 H (38-83) % Lymph % (Auto) 8.3 L (25-47) % [place] % (Auto) 7.9 H (0-7) % Eos % (Auto) 0.1 (0-6) % Baso % (Auto) 0.5 (0-2) % Absolute Neuts (auto) 9.8 H (1.5-7.7) 10^3/ul Absolute Lymphs (auto) 1.0 (1.0-4.8) 10^3/ul Absolute Monos (auto) 0.9 H (0-0.8) 10^3/ul Absolute Eos (auto) 0 (0-0.6) 10^3/ul Absolute Basos (auto) 0.1 (0-0.2) 10^3/ul Absolute Nucleated RBC 0 10^3/ul Nucleated RBC % 0.1 INR (Anticoag Therapy) (0.77-1.02) APTT (26.0-36.3) seconds Sodium 136 (133-145) mmol/L Potassium 4.0 (3.5-5.0) mmol/L Chloride 99 L (101-111) mmol/L Carbon Dioxide 30 (22-32) mmol/L Anion Gap 7 (2-11) mmol/L BUN 19 (6-24) mg/dL Creatinine 0.92 (0.51-0.95) mg/dL Est GFR ( Amer) 75.9 (>60) Est GFR (Non-Af Amer) 59.0 (>60) BUN/Creatinine Ratio 20.7 H (8-20) Glucose 113 H (70-100) mg/dL Lactic Acid 1.5 (0.5-2.0) mmol/L Calcium 9.7 (8.6-10.3) mg/dL Total Bilirubin 0.40 (0.2-1.0) mg/dL AST 35 (13-39) U/L ALT 22 (7-52) U/L Alkaline Phosphatase 84 (34-104) U/L Troponin I 0.01 (<0.04) ng/mL C-Reactive Protein 36.86 H (< 5.00) mg/L B-Natriuretic Peptide ( - 100) pg/mL Total Protein 6.7 (6.4-8.9) g/dL Albumin 3.8 (3.2-5.2) g/dL Globulin 2.9 (2-4) g/dL Albumin/Globulin Ratio 1.3 (1-3) TSH 3.69 (0.34-5.60) mcIU/mL Urine Color Urine Appearance Urine pH (5-9) Ur Specific [place] (1.010-1.030) Urine Protein (Negative) Urine Ketones (Negative) Urine Blood (Negative) Urine Nitrate (Negative) Urine Bilirubin (Negative) Urine Urobilinogen (Negative) Ur Leukocyte Esterase (Negative) Urine WBC (Auto) (Absent) Urine RBC (Auto) (Absent) Ur Squamous Epith Cells (Absent) Amorphous Crystals (Absent) Urine Bacteria (Absent) Urine Glucose (Negative) Urine Ascorbic Acid (Negative) Urine Opiates Screen (None Detect) Ur Barbiturates Screen (None Detect) Ur Phencyclidine Scrn (None Detect) Ur Amphetamines Screen (None Detect) U Benzodiazepines Scrn (None Detect) Urine Cocaine Screen (None Detect) U Cannabinoids Screen (None Detect) 10/29/17 10/29/17 10/29/17 Range/Units 16:24 17:04 17:35 WBC (3.5-10.8) 10^3/ul RBC (4.0-5.4) 10^6/ul Hgb (12.0-16.0) g/dl Hct (35-47) % MCV (80-97) fL MCH (27-31) pg MCHC (31-36) g/dl RDW (10.5-15) % Plt Count (150-450) 10^3/ul MPV (7.4-10.4) um3 Neut % (Auto) (38-83) % Lymph % (Auto) (25-47) % [place] % (Auto) (0-7) % Eos % (Auto) (0-6) % Baso % (Auto) (0-2) % Absolute Neuts (auto) (1.5-7.7) 10^3/ul Absolute Lymphs (auto) (1.0-4.8) 10^3/ul Absolute Monos (auto) (0-0.8) 10^3/ul Absolute Eos (auto) (0-0.6) 10^3/ul Absolute Basos (auto) (0-0.2) 10^3/ul Absolute Nucleated RBC 10^3/ul Nucleated RBC % INR (Anticoag Therapy) 0.87 (0.77-1.02) APTT 29.4 (26.0-36.3) seconds Sodium (133-145) mmol/L Potassium (3.5-5.0) mmol/L Chloride (101-111) mmol/L Carbon Dioxide (22-32) mmol/L Anion Gap (2-11) mmol/L BUN (6-24) mg/dL Creatinine (0.51-0.95) mg/dL Est GFR ( Amer) (>60) Est GFR (Non-Af Amer) (>60) BUN/Creatinine Ratio (8-20) Glucose (70-100) mg/dL Lactic Acid (0.5-2.0) mmol/L Calcium (8.6-10.3) mg/dL Total Bilirubin (0.2-1.0) mg/dL AST (13-39) U/L ALT (7-52) U/L Alkaline Phosphatase (34-104) U/L Troponin I (<0.04) ng/mL C-Reactive Protein (< 5.00) mg/L B-Natriuretic Peptide 325 H ( - 100) pg/mL Total Protein (6.4-8.9) g/dL Albumin (3.2-5.2) g/dL Globulin (2-4) g/dL Albumin/Globulin Ratio (1-3) TSH (0.34-5.60) mcIU/mL Urine Color Yellow Urine Appearance Cloudy Urine pH 7.0 (5-9) Ur Specific [place] 1.014 (1.010-1.030) Urine Protein Negative (Negative) Urine Ketones Negative (Negative) Urine Blood Negative (Negative) Urine Nitrate Negative (Negative) Urine Bilirubin Negative (Negative) Urine Urobilinogen Negative (Negative) Ur Leukocyte Esterase 2+ H (Negative) Urine WBC (Auto) 3+(>20/hpf) H (Absent) Urine RBC (Auto) Trace(0-2/hpf) (Absent) Ur Squamous Epith Cells Present H (Absent) Amorphous Crystals Present H (Absent) Urine Bacteria Absent (Absent) Urine Glucose Negative (Negative) Urine Ascorbic Acid * H (Negative) Urine Opiates Screen (None Detect) Ur Barbiturates Screen (None Detect) Ur Phencyclidine Scrn (None Detect) Ur Amphetamines Screen (None Detect) U Benzodiazepines Scrn (None Detect) Urine Cocaine Screen (None Detect) U Cannabinoids Screen (None Detect) 10/29/17 10/29/17 Range/Units 19:35 20:35 WBC (3.5-10.8) 10^3/ul RBC (4.0-5.4) 10^6/ul Hgb (12.0-16.0) g/dl Hct (35-47) % MCV (80-97) fL MCH (27-31) pg MCHC (31-36) g/dl RDW (10.5-15) % Plt Count (150-450) 10^3/ul MPV (7.4-10.4) um3 Neut % (Auto) (38-83) % Lymph % (Auto) (25-47) % [place] % (Auto) (0-7) % Eos % (Auto) (0-6) % Baso % (Auto) (0-2) % Absolute Neuts (auto) (1.5-7.7) 10^3/ul Absolute Lymphs (auto) (1.0-4.8) 10^3/ul Absolute Monos (auto) (0-0.8) 10^3/ul Absolute Eos (auto) (0-0.6) 10^3/ul Absolute Basos (auto) (0-0.2) 10^3/ul Absolute Nucleated RBC 10^3/ul Nucleated RBC % INR (Anticoag Therapy) (0.77-1.02) APTT (26.0-36.3) seconds Sodium (133-145) mmol/L Potassium (3.5-5.0) mmol/L Chloride (101-111) mmol/L Carbon Dioxide (22-32) mmol/L Anion Gap (2-11) mmol/L BUN (6-24) mg/dL Creatinine (0.51-0.95) mg/dL Est GFR ( Amer) (>60) Est GFR (Non-Af Amer) (>60) BUN/Creatinine Ratio (8-20) Glucose (70-100) mg/dL Lactic Acid 2.0 (0.5-2.0) mmol/L Calcium (8.6-10.3) mg/dL Total Bilirubin (0.2-1.0) mg/dL AST (13-39) U/L ALT (7-52) U/L Alkaline Phosphatase (34-104) U/L Troponin I (<0.04) ng/mL C-Reactive Protein (< 5.00) mg/L B-Natriuretic Peptide ( - 100) pg/mL Total Protein (6.4-8.9) g/dL Albumin (3.2-5.2) g/dL Globulin (2-4) g/dL Albumin/Globulin Ratio (1-3) TSH (0.34-5.60) mcIU/mL Urine Color Urine Appearance Urine pH (5-9) Ur Specific [place] (1.010-1.030) Urine Protein (Negative) Urine Ketones (Negative) Urine Blood (Negative) Urine Nitrate (Negative) Urine Bilirubin (Negative) Urine Urobilinogen (Negative) Ur Leukocyte Esterase (Negative) Urine WBC (Auto) (Absent) Urine RBC (Auto) (Absent) Ur Squamous Epith Cells (Absent) Amorphous Crystals (Absent) Urine Bacteria (Absent) Urine Glucose (Negative) Urine Ascorbic Acid (Negative) Urine Opiates Screen None detected (None Detect) Ur Barbiturates Screen None detected (None Detect) Ur Phencyclidine Scrn None detected (None Detect) Ur Amphetamines Screen None detected (None Detect) U Benzodiazepines Scrn None detected (None Detect) Urine Cocaine Screen None detected (None Detect) U Cannabinoids Screen None detected (None Detect) CXR, personally reviewed: IMPRESSION: POSTOPERATIVE CHANGES. NO ACTIVE DISEASE. CT brain WO, personally reviewed: IMPRESSION: Chronic ischemic White matter change. No intracranial mass or hemorrhage is noted. CTA head/neck, personally reviewed: IMPRESSION: Osseous findings which are may be secondary to Paget's disease. Malignant degeneration of the calvarium is not excluded. In general the findings appear stable. No intracranial or extracranial large arterial occlusion. No hemodynamically significant stenosis of the extracranial internal carotid arteries. Impression: 77F HX lung CA s/p partial pneumonectomy February 2017 with subsequent gradual development of forgetfulness and confusion which has accelerated over the last month, essentially negative ED work up DIAGNOSIS & PLAN Primary acute delirium on suspected chronic undiagnosed dementia : obtain health summaries from PCP, oncology, & neurology : urine CX pending : PT & OT evaluations : manager social work consult for available home services : supportive care Secondary achalasia : no acute issues epilepsy : review meds once reconciled HTN : review meds once reconciled hypothyroidism : review meds once reconciled CAD/PR/stent x2 : review meds once reconciled Admission Rational: CDU observation for confusion/AMS DVTp: SCDs & heparin SQ Code Status: full HCP:
[2017-10-30 03:02] LABS: INR 0.98 (0.77-1.02)
[2017-10-30 03:04] LABS: Hematocrit 36 % (35-47); Mean Corpuscular HGB Conc 34 g/dl (31-36); Mean Corpuscular Hemoglobin 32 pg (27-31); Mean Corpuscular Volume 95 fL (80-97); Red Blood Count 3.76 10^6/ul (4.0-5.4); Red Cell Distribution Width 14 % (10.5-15); White Blood Count 13.1 10^3/ul (3.5-10.8)
[2017-10-30 03:16] LABS: EGFR Non-African American 67.4 (>60)
[2017-10-30 03:35] LABS: ABS Basophils 0.1 10^3/ul (0-0.2); ABS Eosinophils 0 10^3/ul (0-0.6); ABS Lymphocytes 1.1 10^3/ul (1.0-4.8); ABS Monocytes 0.8 10^3/ul (0-0.8); ABS Nucleated RBC 0 10^3/ul; Eosinophil % 0.2 % (0-6); Lymphocyte % 8.4 % (25-47); Mean Platelet Volume 8 um3 (7.4-10.4); Nucleated Red Blood Cells % 0; Platelet Count 180 10^3/ul (150-450)
[2017-10-30] MEDS: Omeprazole CAP* 20 MG PO SCH (05:35)
[2017-10-30 06:48] LABS: Hematocrit 35 % (35-47); Hemoglobin 12.2 g/dl (12.0-16.0); Mean Corpuscular HGB Conc 35 g/dl (31-36); Mean Corpuscular Hemoglobin 33 pg (27-31); Mean Corpuscular Volume 94 fL (80-97); Mean Platelet Volume 7 um3 (7.4-10.4); Platelet Count 181 10^3/ul (150-450); Red Blood Count 3.74 10^6/ul (4.0-5.4); Red Cell Distribution Width 14 % (10.5-15)
[2017-10-30] MEDS: Docusate CAP* 100 MG PO SCH ×2 (09:13→21:33)
--- NOTE | 2017-10-30 09:21 | RAD ---
Indication: Stroke. Contrast: Administered 80.0 ml of VISAPAQUE 320 mg/ml CTA of the neck and head was performed after IV contrast administration. Coronal and sagittal reconstructed images were obtained. Atherosclerotic aorta is noted. The origins of the great vessels demonstrate some calcification at the origin of left subclavian artery. The common carotid arteries demonstrates calcification although evaluation is limited due to motion artifact. Calcific plaque is noted in the carotid bulb bilaterally. There is approximately 50% stenosis of both internal carotid arteries. No evidence of carotid artery dissection or occlusion is noted. The vertebral arteries demonstrates small left vertebral artery. Dominant right vertebral artery is noted. No evidence of vertebral artery dissection is noted. CTA of the head demonstrates pagetoid appearance of the skull base and right calvaria. The intracranial carotid arteries demonstrates calcifications in the intracavernous portion. There is normal anterior and middle cerebral artery bifurcations with no aneurysmal dilatation. No branch occlusion is noted. Patent posterior to indicating arteries are noted bilaterally. Posterior cerebral arteries are unremarkable. There is a dilated esophagus. The distal end of the esophagus is not visualized with air-fluid level in the esophagus. The lung apices demonstrate scarring in the right upper lobe. IMPRESSION: Multiple areas of atherosclerosis are noted in the carotid artery, carotid artery bulb, intracranial carotid arteries. No evidence of plaque is noted. No evidence of branch occlusion, or large vessel occlusion is identified. No evidence of carotid artery or vertebral artery dissection is noted. No evidence of aneurysmal dilatation is noted. 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
[2017-10-30] MEDS ORDERED: Iodixanol* (CONTRAST) 320 MG/ML 100 ML SDV IV ONE (12:10)
--- NOTE | 2017-10-30 15:02 | RAD ---
Indication: Confusion. CT of the brain was performed with after IV contrast administration. Ventricular structures are midline. No midline shift is noted. Periventricular lucency consistent with chronic ischemic White matter change is noted. No evidence of enhancing masses are noted. 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 IMPRESSION: No abnormally enhancing lesions of the brain are noted.
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
[2017-10-30] MEDS: cefTRIAXone(*) 1 GM in NS 0.9% 50 ML* 50 ML IVPB SCH (15:26)
--- NOTE | 2017-10-30 17:18 | PN ---
Progress Note - Progress Note Date of Service: 10/30/17 SOAP: CC: Confusion Subjective: []She is not contributing to history. Reports history of seizures but is not coherent on my exam. Denies pain. Has poor recollection of her cancer history. Denies fever, urinary symptoms. She thought she may have had a seizure. Cancer History: 1. Breast Cancer. Dx: 2001. T2N2M0, stage IIIA - T - 2.3 cm, 4 of 5 positive LNs - CEF chemotherapy - Tamoxifen 2002 to 2004 - Arimidex from 2004 to 2007 - SHAKIR since [address] in 10/2016 with lesion in the RUL at 6 mm in RUL and 4 mm in RML. 2. CT 02/2017 with nodules up to 8 mm, 3. 02/23/2017 Dr Islas in [place] - bronchoscopy, right VATS and wedge resection to completion lobectomy. - Pathology, 3 malignant nodules, well differentiated adenocarcinoma, 12, 10 and 9 mm. 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 - Dx: 3 stage Ia primary lesions w/in feild effect - Follow up CT 09/2017, no additional disease. Objective: [] Vital Signs Temp Pulse Resp BP Pulse Ox 98.2 F 89 22 167/75 98 10/30/17 16:17 10/30/17 16:17 10/30/17 16:17 10/30/17 16:17 10/30/17 11:56 Neuro: Confused, oriented to hospital, not to year or month. Does not know why in hospital. Strengh 5/5 HEENT - no lesions Breast exam negative and no axillary LN CTA RRR S1S2 +BS, no HSM Ext w/o edema CT Head with IVC - no lesions. Assessment: []77 year old with history of breast cancer in 2001 and early stage lung cancer last year as well as history of seizures and syncopy in past. Presents wtih MS changes. No evidence of TEST CARRIER malignancy. Differential of seizure, metabolic encephalopathy, other structural TEST CARRIER disease. Plan: []No further evaluation from oncologic standpoint. Will follow.
[2017-10-31] MEDS: Heparin VIAL(*) 5000 UNITS/ML VIAL (FIVE THOUSAND) SUBCUT SCH ×3 (05:59→20:15)
[2017-10-31] MEDS: Omeprazole CAP* 20 MG PO SCH (05:59)
[2017-10-31] MEDS ORDERED: DOCUSATE SODIUM 50 MG PO SCH (09:00)
--- NOTE | 2017-10-31 09:13 | PN ---
Subjective Date of Service: 10/31/17 Interval History: . Interviewed and examined patient at bedside; Reviewed previous notes and radiology results; confused overnight again some question of seizure activity; not currently UTI noted - on abx no specific complaints Family History: Unchanged from Admission Social History: Unchanged from Admission Past Medical History: Unchanged from Admission Objective Active Medications: . Acetaminophen (Tylenol Tab*) 650 mg PO Q6H PRN PRN Reason: FEVER/PAIN Albuterol (Ventolin 2.5 Mg/3 Ml Neb.Jody*) 2.5 mg INH Q2H PRN PRN Reason: SOB/WHEEZING Aspirin (Aspirin Low Dose Tab*) 81 mg PO QAM [facility] Docusate Sodium (Colace Cap*) 200 mg PO BID [facility] Last Admin: 10/30/17 21:33 Dose: 200 mg Heparin Sodium (Porcine) (Heparin Vial(*)) 5,000 units SUBCUT Q8HR [facility] Last Admin: 10/31/17 05:59 Dose: 5,000 units Ceftriaxone Sodium 1 gm/ (Sodium Chloride) 50 mls @ 200 mls/hr IVPB Q24H [facility] Last Admin: 10/30/17 15:26 Dose: 200 mls/hr Levetiracetam (Keppra Tab*) 500 mg PO BID [facility] Levothyroxine Sodium (Synthroid Tab*) 25 mcg PO DAILY [facility] Melatonin (Melatonin (Nf)) 3 mg PO BEDTIME PRN; Protocol PRN Reason: Sleep Metoprolol Succinate (Toprol Xl Tab*) 25 mg PO EVERY OTHER DAY [facility] Multivitamins/Minerals (Theragran/Minerals Tab*) 1 tab PO DAILY [facility] Non-Formulary Medication (Docusate Sodium [Colace Clear]) 50 mg PO DAILY [facility] Omeprazole (Prilosec Cap*) 20 mg PO DAILY@0600 [facility] Last Admin: 10/31/17 05:59 Dose: 20 mg Ondansetron HCl (Zofran Inj*) 4 mg IV Q6H PRN PRN Reason: NAUSEA Sodium Chloride (Sodium Chloride Tab*) 1 gm PO BID [facility] Zolpidem Tartrate (Ambien Tab*) 5 mg PO BEDTIME [facility] . Vital Signs - 8 hr 10/31/17 10/31/17 10/31/17 01:15 01:30 01:45 Temperature Pulse Rate 98 91 101 Respiratory Rate Blood Pressure 162/67 169/71 (mmHg) O2 Sat by Pulse Oximetry 10/31/17 10/31/17 10/31/17 02:00 02:15 03:37 Temperature 98.6 F Pulse Rate 107 98 91 Respiratory 16 Rate Blood Pressure 159/70 168/100 (mmHg) O2 Sat by Pulse Oximetry Oxygen Devices in Use Now: None Appearance: elderly, confused at time of exam Eyes: No Scleral Icterus Ears/Nose/Mouth/Throat: Clear Oropharnyx Neck: Trachea Midline Respiratory: Symmetrical Chest Expansion and Respiratory Effort Cardiovascular: NL Sounds; No Murmurs; No JVD Abdominal: NL Sounds; No Tenderness; No Distention Extremities: No Edema Skin: No Rash or Ulcers Neurological: - - + confused. A&O x 1 (name) Lines/Tubes/Other Access: Clean, Dry and Intact Peripheral IV Nutrition: Taking PO's Result Diagrams: 10/30/17 06:41 10/30/17 02:33 Diagnostic Imaging: Patient Name: MERVAT GRULLON Medical Record#: [id number] Ordering Physician: Estefani Pierce LOAN SERVICING REPRESENTATIVE Acct.#: [id number] : 1940 Age: 77 Sex: F Location: [address] [place] [address] Exam Date: 10/30/17 114 ADM Status: ADM Nicola Order Information: CT BRAIN W Accession Number: [id number] CPT: 75002 Indication: Confusion. CT of the brain was performed with after IV contrast administration. Ventricular structures are midline. No midline shift is noted. Periventricular lucency consistent with chronic ischemic White matter change is noted. No evidence of enhancing masses are noted. 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 IMPRESSION: No abnormally enhancing lesions of the brain are noted. <Electronically signed by Rafaela White MD in [place]> 10/30/171457 Dictated By: Rafaela White MD Dictated Date/Time: 10/30/171457 Transcribed Date/Time: 10/30/171456 Copy to: Assess/Plan/Problems-Billing . Assessment: This is a 77 year old female patient with history of breast and lung CA that presents with for confusion and weakness. - Patient Problems (1) UTI (urinary tract infection) Current Visit: Yes Status: Acute Priority: High Comment: - E. Coli on culture - Ceftriaxone 1 gram daily - UTI can explain acute on chronic confusional state (2) Confusion Current Visit: Yes Status: Acute Priority: High Code(s): R41.0 - DISORIENTATION, UNSPECIFIED Comment: - CT head as above, no bleed or masses - Oncology consulted, input appreciated (3) Cachexia Current Visit: Yes Status: Chronic Priority: High Code(s): R64 - CACHEXIA Comment: - Nutrition consult requested (4) History of breast cancer Current Visit: Yes Status: Chronic Priority: High Code(s): Z85.3 - PERSONAL HISTORY OF MALIGNANT NEOPLASM OF BREAST Comment: - Stable; oncology note 10/30 details this well. (5) History of lung cancer Current Visit: Yes Status: Chronic Priority: High Code(s): Z85.118 - PERSONAL HISTORY OF MALIGNANT NEOPLASM OF BRONCHUS AND LUNG Comment: - s/p partial pneumonectomy - undergoing surveillance (6) DVT prophylaxis Current Visit: No Status: Chronic Priority: Medium Onset Date: 01/07/15 Code(s): ATF8474 - Comment: - heparin subq (7) Full code status Current Visit: No Status: Chronic Priority: Medium Code(s): Z78.9 - OTHER SPECIFIED HEALTH STATUS Comment: - noted Status and Disposition: Remain inpatient for treatment of UTI and pending onco eval
[2017-10-31] MEDS: Docusate CAP* 100 MG PO SCH ×2 (09:37→20:14)
[2017-10-31] MEDS: Multivitamins/Minerals TAB PO SCH (09:37)
[2017-10-31] MEDS: Levothyroxine TAB* 25 MCG TAB PO SCH (09:38)
[2017-10-31] MEDS: Metoprolol Succinate XL TAB* 25 MG PO SCH (09:38)
[2017-10-31] MEDS: Aspirin Low Dose CHEW TAB* 81 MG PO SCH (09:38)
[2017-10-31] MEDS: levETIRAcetam TAB* 500 MG PO SCH ×2 (09:38→20:13)
[2017-10-31] MEDS: Sodium Chloride TAB* 1 GM PO SCH ×2 (09:41→20:13)
[2017-10-31] MEDS: Nicotine GUM* 2 MG PO PRN (12:32)
[2017-10-31] MEDS: cefTRIAXone(*) 1 GM in NS 0.9% 50 ML* 50 ML IVPB SCH (14:24)
[2017-10-31] MEDS ORDERED: Haloperidol INJ IV/IM* 5 MG/ML AMP IVPB ONE (16:50)
[2017-10-31] MEDS: Zolpidem TAB* 5 MG PO SCH (20:14)
[2017-10-31] MEDS: Acetaminophen TAB* 325 MG PO PRN (21:35)
[2017-11-01] MEDS: Heparin VIAL(*) 5000 UNITS/ML VIAL (FIVE THOUSAND) SUBCUT SCH ×3 (05:12→22:43)
[2017-11-01] MEDS: Levothyroxine TAB* 25 MCG TAB PO SCH (05:12)
[2017-11-01] MEDS: Omeprazole CAP* 20 MG PO SCH (05:12)
--- NOTE | 2017-11-01 06:05 | PN ---
Progress Note - Progress Note Date of Service: 11/01/17 Note: Nursing reports aggressive behavior from patient, hitting/kicking staff, chewing on seizure pads, etc. She has an EEG scheduled for this AM, so sedation at this time would be counter-productive. Will place in soft restraints to protect herself and staff and see if time calms.
[2017-11-01] MEDS: levETIRAcetam TAB* 500 MG PO SCH ×2 (09:45→20:26)
[2017-11-01] MEDS: Sodium Chloride TAB* 1 GM PO SCH (09:45)
[2017-11-01] MEDS: Multivitamins/Minerals TAB PO SCH (09:45)
[2017-11-01] MEDS: Docusate CAP* 100 MG PO SCH ×2 (09:45→20:26)
[2017-11-01] MEDS: Aspirin Low Dose CHEW TAB* 81 MG PO SCH (09:45)
--- NOTE | 2017-11-01 10:09 | PN ---
Subjective Date of Service: 11/01/17 Interval History: No c/o. Family History: Unchanged from Admission Social History: Unchanged from Admission Past Medical History: Unchanged from Admission Objective Active Medications: Acetaminophen (Tylenol Tab*) 650 mg PO Q6H PRN PRN Reason: FEVER/PAIN Last Admin: 10/31/17 21:35 Dose: 650 mg Albuterol (Ventolin 2.5 Mg/3 Ml Neb.Jody*) 2.5 mg INH Q2H PRN PRN Reason: SOB/WHEEZING Aspirin (Aspirin Low Dose Tab*) 81 mg PO QAM [facility] Last Admin: 11/01/17 09:45 Dose: 81 mg Docusate Sodium (Colace Cap*) 200 mg PO BID [facility] Last Admin: 11/01/17 09:45 Dose: 200 mg Heparin Sodium (Porcine) (Heparin Vial(*)) 5,000 units SUBCUT Q8HR [facility] Last Admin: 11/01/17 05:12 Dose: 5,000 units Ceftriaxone Sodium 1 gm/ (Sodium Chloride) 50 mls @ 200 mls/hr IVPB Q24H [facility] Stop: 11/01/17 23:30 Last Admin: 10/31/17 14:24 Dose: 200 mls/hr Levetiracetam (Keppra Tab*) 500 mg PO BID [facility] Last Admin: 11/01/17 09:45 Dose: 500 mg Levothyroxine Sodium (Synthroid Tab*) 25 mcg PO DAILY@0600 [facility] Last Admin: 11/01/17 05:12 Dose: 25 mcg Melatonin (Melatonin (Nf)) 3 mg PO BEDTIME PRN; Protocol PRN Reason: Sleep Metoprolol Succinate (Toprol Xl Tab*) 25 mg PO EVERY OTHER DAY [facility] Last Admin: 10/31/17 09:38 Dose: 25 mg Multivitamins/Minerals (Theragran/Minerals Tab*) 1 tab PO DAILY [facility] Last Admin: 11/01/17 09:45 Dose: 1 tab Nicotine Polacrilex (Nicotine Gum*) 2 mg PO Q2H PRN PRN Reason: CRAVING Last Admin: 10/31/17 12:32 Dose: 2 mg Omeprazole (Prilosec Cap*) 20 mg PO DAILY@0600 [facility] Last Admin: 11/01/17 05:12 Dose: 20 mg Ondansetron HCl (Zofran Inj*) 4 mg IV Q6H PRN PRN Reason: NAUSEA Quetiapine Fumarate (Seroquel Tab*) 12.5 mg PO BEDTIME [facility] Sodium Chloride (Sodium Chloride Tab*) 1 gm PO DAILY [facility] Zolpidem Tartrate (Ambien Tab*) 5 mg PO BEDTIME [facility] Last Admin: 10/31/17 20:14 Dose: 5 mg Vital Signs - 8 hr 11/01/17 11/01/17 11/01/17 03:32 07:41 09:29 Temperature 97.2 F 97.9 F Pulse Rate 66 87 Respiratory 16 16 16 Rate Blood Pressure 146/66 (mmHg) O2 Sat by Pulse 99 94 Oximetry Oxygen Devices in Use Now: None Appearance: Alert, partly up in bed. Sl restless but cooperative and sociable. Looks comfortable. Neck: NL Appearance and Movements; NL JVP, No Thyroid Enlargement, Masses Respiratory: Symmetrical Chest Expansion and Respiratory Effort, Clear to Auscultation, Clear to Percussion Cardiovascular: NL Sounds; No Murmurs; No JVD, RRR, No Edema, - Extremities: No Edema, No Clubbing, Cyanosis, - Skin: No Rash or Ulcers, No Nodules or Sclerosis, - Neurological: NL Sensation - Able to say her full name, her age, the town she lives in, the name of her . Result Diagrams: 10/30/17 06:41 10/30/17 02:33 Diagnostic Imaging: Patient Name: MERVAT GRULLON Medical Record#: [id number] Ordering Physician: Estefani Pierce NP Acct.#: [id number] : 1940 Age: 77 Sex: F Location: [address] [place] [address] - MEDICAL Exam Date: 10/30/17 114 ADM Status: ADM Nicola Order Information: CT BRAIN W Accession Number: [id number] CPT: 20995 Indication: Confusion. CT of the brain was performed with after IV contrast administration. Ventricular structures are midline. No midline shift is noted. Periventricular lucency consistent with chronic ischemic White matter change is noted. No evidence of enhancing masses are noted. 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 IMPRESSION: No abnormally enhancing lesions of the brain are noted. <Electronically signed by Rafaela White MD in [facility]> 10/30/171457 Dictated By: Rafaela White MD Dictated Date/Time: 10/30/171457 Transcribed Date/Time: 10/30/171456 Copy to: Assess/Plan/Problems-Billing . Assessment: This is a 77 year old female patient with history of breast and lung CA that presents with for confusion and weakness. - Patient Problems (1) Confusion Current Visit: Yes Status: Acute Priority: High Code(s): R41.0 - DISORIENTATION, UNSPECIFIED SNOMED Code(s): 281941303 Comment: - CT head chronic white matter disease, pagetoid change of skull. - Oncology input appreciated EEG pending 11/01. Likely dementia with possible exacerbation by UTI. Improved. Would try quetiapine 12.5 mg hs as patient was still physically agressive early AM 11/01. (2) History of lung cancer Current Visit: Yes Status: Chronic Priority: High Code(s): Z85.118 - PERSONAL HISTORY OF MALIGNANT NEOPLASM OF BRONCHUS AND LUNG SNOMED Code(s): 890648150 Comment: - s/p partial pneumonectomy - undergoing surveillance (3) UTI (urinary tract infection) Current Visit: Yes Status: Acute Priority: High Comment: - E. Coli sens to cefazolin. - Ceftriaxone 1 gram daily x 3 doses, last dose 11/01. - UTI might explain acute on chronic confusional state Status and Disposition: Remain inpatient for treatment of UTI and pending onco eval
[2017-11-01 11:42] LABS: ABS Basophils 0 10^3/ul (0-0.2); ABS Eosinophils 0 10^3/ul (0-0.6); ABS Lymphocytes 0.9 10^3/ul (1.0-4.8); ABS Monocytes 0.7 10^3/ul (0-0.8); ABS Neutrophils 10.2 10^3/ul (1.5-7.7); ABS Nucleated RBC 0 10^3/ul; Eosinophil % 0.1 % (0-6); Hematocrit 38 % (35-47); Hemoglobin 12.9 g/dl (12.0-16.0); Lymphocyte % 7.3 % (25-47); Mean Corpuscular HGB Conc 34 g/dl (31-36); Mean Corpuscular Hemoglobin 32 pg (27-31); Mean Corpuscular Volume 93 fL (80-97); Mean Platelet Volume 8 um3 (7.4-10.4); Nucleated Red Blood Cells % 0; Platelet Count 230 10^3/ul (150-450); Red Cell Distribution Width 13 % (10.5-15); White Blood Count 11.8 10^3/ul (3.5-10.8)
[2017-11-01 12:06] LABS: EGFR Non-African American 83.7 (>60)
[2017-11-01] MEDS: cefTRIAXone(*) 1 GM in NS 0.9% 50 ML* 50 ML IVPB SCH (13:02)
[2017-11-01] MEDS: Nicotine GUM* 2 MG PO PRN (17:43)
[2017-11-01] MEDS: Zolpidem TAB* 5 MG PO SCH (20:26)
[2017-11-01] MEDS ORDERED: QUEtiapine TAB* 25 MG PO SCH (21:00)
--- NOTE | 2017-11-02 03:13 | EEG ---
CC: Dr. Joseph * ELECTROENCEPHALOGRAPHY: DATE OF STUDY: 11/01/17 - ROOM #405 LOCATION: The patient is an inpatient. ORDERING PHYSICIAN: Dr. Crandall. PRIMARY CARE PHYSICIAN: Dr. Joseph. CLINICAL PROBLEM: This is a 77-year-old woman with a history of lung cancer, status post partial pneumonectomy in February of 2017. Her states that she "has not been right" since her surgery. He further states that her forgetfulness and confusion have accelerated over the past month. Her handwriting has become illegible and she has been having increasing falls. EEG is requested to evaluate for epileptiform abnormalities. MEDICATIONS: 1. Levetiracetam. 2. Zolpidem. 3. Sodium chloride. 4. Lorazepam. 5. Colace. 6. Sertraline. 7. Metoprolol. 8. Atorvastatin. 9. Cholecalciferol. 10. Levothyroxine. 11. Multivitamin. 12. Aspirin 81 mg. REPORT: The waking background showed appropriate organization with clearly defined anterior to posterior voltage and frequency gradients. There was a well -defined posterior dominant rhythm of 9 Hz, which was symmetrical and showed normal reactivity. Anteriorly, there was an expected pattern of lower voltage, irregular, mixed faster frequencies. Photic stimulation and hyperventilation were not performed. The patient did not become significantly drowsy during the study. There were some brief periods of slowing in the left temporal region but this was mostly in the theta range, which is potentially within the range of normal for patient this age. Throughout the recording, there were no definitive epileptiform abnormalities. CLINICAL IMPRESSION: This is an essentially normal waking EEG. There is some theta range slowing in the left temporal region, which is thought probably within the range of normal for patient of this age. There are no epileptiform abnormalities. [id number]/[facility] #: [id number] [facility] [place]
--- NOTE | 2017-11-02 05:38 | PN ---
Progress Note - Progress Note Date of Service: 11/02/17 Note: Nursing reports increased confusion, increased sinus tachycardia & decreasing blood pressure. She has completed a 3day course of IV ceftriaxone for susceptible UTI. Upon evaluation she has rhythmic tongue and jaw movements reminiscent of an extrapyramidal reaction and did take a first time dose of quetiapine at bedtime. HR is sinus tach in the 120s. RR is high teens and unlabored. She is unable to tell me her name, but looks when called by her name. She shakes her head 'no' when asked about pain or discomfort. Face is symmetric and she moves all 4 extremities equally. Abdomen is soft, non-tender. Extremities are warm and dry. assessment: plan possible extrapyramidal reaction to quetiapine : 25mg diphenhydramine IV, if resolves would recommend D/C of quetiapine tachycardia and lower blood pressure trend : obtain blood CX and check lactic acid : poor oral intake, possibly hypovolemia, give 1L NS : continue to monitor
[2017-11-02] MEDS ORDERED: diPHENhydraMINE IV* 50 MG/ML 1 ml VIAL (BENADRYL) IV ONE (05:45)
[2017-11-02] MEDS ORDERED: cefTRIAXone VIAL(*) 1,000 MG in NS 0.9% 50 ML* 50 ML IVPB SCH (06:00)
[2017-11-02 06:02] LABS: ABS Basophils 0.1 10^3/ul (0-0.2); ABS Eosinophils 0 10^3/ul (0-0.6); ABS Neutrophils 15.7 10^3/ul (1.5-7.7); ABS Nucleated RBC 0 10^3/ul; Eosinophil % 0.1 % (0-6); Hematocrit 38 % (35-47); Hemoglobin 12.9 g/dl (12.0-16.0); Lymphocyte % 5.4 % (25-47); Mean Corpuscular HGB Conc 34 g/dl (31-36); Mean Corpuscular Hemoglobin 32 pg (27-31); Mean Corpuscular Volume 93 fL (80-97); Mean Platelet Volume 8 um3 (7.4-10.4); Nucleated Red Blood Cells % 0; Platelet Count 250 10^3/ul (150-450); Red Blood Count 4.09 10^6/ul (4.0-5.4); Red Cell Distribution Width 13 % (10.5-15); White Blood Count 17.8 10^3/ul (3.5-10.8)
[2017-11-02] MEDS: NS 0.9% 1000 ML* 1,000 ML IV SCH ×3 (06:31→23:05)
[2017-11-02] MEDS: Heparin VIAL(*) 5000 UNITS/ML VIAL (FIVE THOUSAND) SUBCUT SCH ×3 (06:31→21:19)
[2017-11-02] MEDS: Levothyroxine TAB* 25 MCG TAB PO SCH (06:31)
[2017-11-02] MEDS: Omeprazole CAP* 20 MG PO SCH (06:31)
--- NOTE | 2017-11-02 08:29 | PN ---
Subjective Date of Service: 11/02/17 Interval History: Ms. Honeycutt was very confused this morning and incoherent. She was also evidencing akathisia and lip smacking consistent with extrapyramidal symptoms ( EPS). Throughout the morning her mentation improved, especially after hydration and placement of flores catheter. However, this afternoon nursing staff report that she is again having EPS but remains much more alert. She denies any complaint to me today other than to see she felt that she needed to pee when I pressed on her bladder. Nursing staff noted that she had complained of needing to pee but then did not go when she was assisted to the commode yesterday. Family History: Unchanged from Admission Social History: Unchanged from Admission Past Medical History: Unchanged from Admission Objective Active Medications: Acetaminophen (Tylenol Tab*) 650 mg PO Q6H PRN Albuterol (Ventolin 2.5 Mg/3 Ml Neb.Joyd*) 2.5 mg INH Q2H PRN Aspirin (Aspirin Low Dose Tab*) 81 mg PO QAM JERI Docusate Sodium (Colace Cap*) 200 mg PO BID JERI Heparin Sodium (Porcine) (Heparin Vial(*)) 5,000 units SUBCUT Q8HR JERI Sodium Chloride (Ns 0.9% 1000 Ml*) 1,000 mls @ 125 mls/hr IV PER RATE JERI Levetiracetam (Keppra Tab*) 500 mg PO BID JERI Levothyroxine Sodium (Synthroid Tab*) 25 mcg PO DAILY@0600 JERI Melatonin (Melatonin (Nf)) 3 mg PO BEDTIME PRN; Protocol Metoprolol Succinate (Toprol Xl Tab*) 25 mg PO EVERY OTHER DAY JERI Multivitamins/Minerals (Theragran/Minerals Tab*) 1 tab PO DAILY JERI Nicotine Polacrilex (Nicotine Gum*) 2 mg PO Q2H PRN Omeprazole (Prilosec Cap*) 20 mg PO DAILY@0600 JERI Ondansetron HCl (Zofran Inj*) 4 mg IV Q6H PRN Quetiapine Fumarate (Seroquel Tab*) 12.5 mg PO BEDTIME JERI Sodium Chloride (Sodium Chloride Tab*) 1 gm PO DAILY JERI Zolpidem Tartrate (Ambien Tab*) 5 mg PO BEDTIME JERI Vital Signs: Temp Pulse Resp BP Pulse Ox 98.0 F 142 16 109/57 97 11/02/17 08:09 11/02/17 07:58 11/02/17 08:17 11/02/17 07:58 11/02/17 07:58 Oxygen Devices in Use Now: None Appearance: Female lying in bed in NAD Eyes: No Scleral Icterus Ears/Nose/Mouth/Throat: Mucous Membranes Moist Neck: Trachea Midline Respiratory: Symmetrical Chest Expansion and Respiratory Effort, Clear to Auscultation Cardiovascular: NL Sounds; No Murmurs; No JVD, No Edema Abdominal: - - Soft, reports feeling like she needs to pee when bladder is palpated Extremities: No Edema Skin: No Rash or Ulcers Neurological: NL Muscle Strength and Tone, - - EPS this AM, now resolved, alert and oriented to self by the end of the day Nutrition: Taking PO's Result Diagrams: 11/02/17 05:41 11/01/17 11:27 Diagnostic Imaging: . Assess/Plan/Problems-Billing . Assessment: Ms. Honeycutt is a 77 year old female patient with history of breast and lung CA that presents with for confusion and weakness found to have UTI which was treated appropriately with ceftriaxone but now presents with worsening leukocytosis, worsening confusion, and tachycardia. - Patient Problems (1) Tachycardia Comment: - Patient newly tachycardic this AM, appeared sinus. Resolved with fluids and placement of flores. Worsening leukocytosis, treated appropriately for UTI. Suspect this was all related to urinary retention. - Blood cultures drawn this morning, monitor results. - Repeat UA negative, chest xray with atelectasis only. (2) Confusion Comment: - Worsening this AM, with lip smacking and classic extra-pyramidal symptoms. Seroquel stopped, which was started last night for aggressive behavior. Resolved for most of the day, but returned this afternoon. Start benadryl prn. - Likely component of delirium in setting of dementia with possible exacerbation by UTI. - CT head chronic white matter disease, pagetoid change of skull. - Oncology input appreciated - EEG without epileptiform discharges. (3) UTI (urinary tract infection) Current Visit: Yes Status: Acute Priority: High Comment: - E. Coli sens to ceftriaxone. - Completed 3 day course, last dose 11/01. - UTI might explain acute on chronic confusional state. (4) History of breast cancer Comment: - Stable; oncology note 10/30 details this well. (5) History of lung cancer Comment: - s/p partial pneumonectomy (6) DVT prophylaxis Comment: - heparin subq (7) Full code status Comment: Status and Disposition: Inpatient. Anticipate discharge to home when medically stable. Overall prognosis is poor, palliative care consult placed.
[2017-11-02] MEDS ORDERED: NS 0.9% 1000 ML* 1,000 ML IV ONE (08:53)
--- NOTE | 2017-11-02 10:00 | RAD ---
INDICATION: Sepsis COMPARISON: Chest x-ray dated October 29, 2017 TECHNIQUE: Single AP portable view of the chest was obtained. FINDINGS: Image quality is compromised due to the relative inferiority of a portable chest x-ray. Again seen is a left upper chest cardiac pacemaker with 2 leads overlying the heart and surgical clips overlying the right axilla. The heart and mediastinum exhibit normal size and contour. There is calcified atherosclerosis overlying the arch of the aorta. Similar to the prior chest x-ray the lungs appear hyperaerated and the AP view. There is pleural-based linear density noted at the right lung base most consistent with atelectasis. The lungs are otherwise grossly clear. There is no evidence of a large pleural effusion. Visualized bones are normal for the patient's age. IMPRESSION: Pleural-based linear density at the right lung base new since the prior chest x-ray is morphologically most consistent with atelectasis.
[2017-11-02] MEDS: levETIRAcetam TAB* 500 MG PO SCH ×2 (10:03→21:19)
[2017-11-02] MEDS: Aspirin Low Dose CHEW TAB* 81 MG PO SCH (10:03)
[2017-11-02] MEDS: Metoprolol Succinate XL TAB* 25 MG PO SCH (10:03)
[2017-11-02] MEDS: Sodium Chloride TAB* 1 GM PO SCH (10:03)
[2017-11-02] MEDS: Docusate CAP* 100 MG PO SCH ×2 (10:03→21:19)
[2017-11-02] MEDS: Multivitamins/Minerals TAB PO SCH (10:03)
--- NOTE | 2017-11-02 12:11 | CONSULT ---
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 SHe was admitted with AMS and confusion, although her says she was "not quite right" since her surgery last summer. CT scan of brain shows chronic ischemic white matter changes, and EEG is WNL. The patient was found to have a UTI on admission and was treated with 3 days of IV ceftriaxone, but nevertheless her mental status has not improved. She has now developed extrapyramidal symptoms, which may be in response to a dose of quetiapine she recevied for behavior issues. She has also developed tachycardia which may be 2: 1 flutter vs. sinus tachycardia, as well as hypotension, leukocytosis at 17.8 ( 16% bands) and elevated CRP (>54). TSH is WNL on this admission. Lab Values: Abnormal Lab Results 11/01/17 11/02/17 11/02/17 11:27 00:16 05:34 WBC RBC Hgb Hct MCV MCH MCHC RDW Plt Count MPV Neut % (Auto) Lymph % (Auto) Fisher % (Auto) Eos % (Auto) Baso % (Auto) Absolute Neuts (auto) Absolute Lymphs (auto) Absolute Monos (auto) Absolute Eos (auto) Absolute Basos (auto) Absolute Nucleated RBC Nucleated RBC % Sodium 131 L Potassium 3.5 Chloride 99 L Carbon Dioxide 25 Anion Gap 7 BUN 13 Creatinine 0.68 Est GFR ( Amer) 107.6 Est GFR (Non-Af Amer) 83.7 BUN/Creatinine Ratio 19.1 Glucose 95 POC Glucose (mg/dL) 115 H Lactic Acid 1.1 Calcium 9.5 C-Reactive Protein 11/02/17 11/02/17 05:34 05:41 WBC 17.8 H RBC 4.09 Hgb 12.9 Hct 38 MCV 93 MCH 32 H MCHC 34 RDW 13 Plt Count 250 MPV 8 Neut % (Auto) 88.4 H Lymph % (Auto) 5.4 L Fisher % (Auto) 5.5 Eos % (Auto) 0.1 Baso % (Auto) 0.6 Absolute Neuts (auto) 15.7 H Absolute Lymphs (auto) 1.0 Absolute Monos (auto) 1.0 H Absolute Eos (auto) 0 Absolute Basos (auto) 0.1 Absolute Nucleated RBC 0 Nucleated RBC % 0 Sodium Potassium Chloride Carbon Dioxide Anion Gap BUN Creatinine Est GFR ( Amer) Est GFR (Non-Af Amer) BUN/Creatinine Ratio Glucose POC Glucose (mg/dL) Lactic Acid Calcium C-Reactive Protein 54.23 H Laboratory Last Values WBC 17.8 10^3/ul (3.5-10.8) H 11/02/17 05:41 RBC 4.09 10^6/ul (4.0-5.4) 11/02/17 05:41 Hgb 12.9 g/dl (12.0-16.0) 11/02/17 05:41 Hct 38 % (35-47) 11/02/17 05:41 MCV 93 fL (80-97) 11/02/17 05:41 MCH 32 pg (27-31) H 11/02/17 05:41 MCHC 34 g/dl (31-36) 11/02/17 05:41 RDW 13 % (10.5-15) 11/02/17 05:41 Plt Count 250 10^3/ul (150-450) 11/02/17 05:41 MPV 8 um3 (7.4-10.4) 11/02/17 05:41 Neut % (Auto) 88.4 % (38-83) H 11/02/17 05:41 Lymph % (Auto) 5.4 % (25-47) L 11/02/17 05:41 Fisher % (Auto) 5.5 % (0-7) 11/02/17 05:41 Eos % (Auto) 0.1 % (0-6) 11/02/17 05:41 Baso % (Auto) 0.6 % (0-2) 11/02/17 05:41 Absolute Neuts (auto) 15.7 10^3/ul (1.5-7.7) H 11/02/17 05:41 Absolute Lymphs (auto) 1.0 10^3/ul (1.0-4.8) 11/02/17 05:41 Absolute Monos (auto) 1.0 10^3/ul (0-0.8) H 11/02/17 05:41 Absolute Eos (auto) 0 10^3/ul (0-0.6) 11/02/17 05:41 Absolute Basos (auto) 0.1 10^3/ul (0-0.2) 11/02/17 05:41 Absolute Nucleated RBC 0 10^3/ul 11/02/17 05:41 Nucleated RBC % 0 11/02/17 05:41 INR (Anticoag Therapy) 0.98 (0.77-1.02) 10/30/17 02:33 APTT 19.2 seconds (26.0-36.3) L 10/30/17 02:33 Sodium 131 mmol/L (133-145) L 11/01/17 11:27 Potassium 3.5 mmol/L (3.5-5.0) 11/01/17 11:27 Chloride 99 mmol/L (101-111) L 11/01/17 11:27 Carbon Dioxide 25 mmol/L (22-32) 11/01/17 11:27 Anion Gap 7 mmol/L (2-11) 11/01/17 11:27 BUN 13 mg/dL (6-24) 11/01/17 11:27 Creatinine 0.68 mg/dL (0.51-0.95) 11/01/17 11:27 Est GFR ( Amer) 107.6 (>60) 11/01/17 11:27 Est GFR (Non-Af Amer) 83.7 (>60) 11/01/17 11:27 BUN/Creatinine Ratio 19.1 (8-20) 11/01/17 11:27 Glucose 95 mg/dL (70-100) 11/01/17 11:27 POC Glucose (mg/dL) 115 mg/dL (70-100) H 11/02/17 00:16 Lactic Acid 1.1 mmol/L (0.5-2.0) 11/02/17 05:34 Calcium 9.5 mg/dL (8.6-10.3) 11/01/17 11:27 Total Bilirubin 0.40 mg/dL (0.2-1.0) 10/29/17 16:24 AST 35 U/L (13-39) 10/29/17 16:24 ALT 22 U/L (7-52) 10/29/17 16:24 Alkaline Phosphatase 84 U/L (34-104) 10/29/17 16:24 Troponin I 0.01 ng/mL (<0.04) 10/29/17 16:24 C-Reactive Protein 54.23 mg/L (< 5.00) H 11/02/17 05:34 B-Natriuretic Peptide 325 pg/mL (-100) H 10/29/17 16:24 Total Protein 6.7 g/dL (6.4-8.9) 10/29/17 16:24 Albumin 3.8 g/dL (3.2-5.2) 10/29/17 16:24 Globulin 2.9 g/dL (2-4) 10/29/17 16:24 Albumin/Globulin Ratio 1.3 (1-3) 10/29/17 16:24 TSH 3.69 mcIU/mL (0.34-5.60) 10/29/17 16:24 Urine Color Yellow 10/29/17 17:35 Urine Appearance Cloudy 10/29/17 17:35 Urine pH 7.0 (5-9) 10/29/17 17:35 Ur Specific [place] 1.014 (1.010-1.030) 10/29/17 17:35 Urine Protein Negative (Negative) 10/29/17 17:35 Urine Ketones Negative (Negative) 10/29/17 17:35 Urine Blood Negative (Negative) 10/29/17 17:35 Urine Nitrate Negative (Negative) 10/29/17 17:35 Urine Bilirubin Negative (Negative) 10/29/17 17:35 Urine Urobilinogen Negative (Negative) 10/29/17 17:35 Ur Leukocyte Esterase 2+ (Negative) H 10/29/17 17:35 Urine WBC (Auto) 3+(>20/hpf) (Absent) H 10/29/17 17:35 Urine RBC (Auto) Trace(0-2/hpf) (Absent) 10/29/17 17:35 Ur Squamous Epith Cells Present (Absent) H 10/29/17 17:35 Amorphous Crystals Present (Absent) H 10/29/17 17:35 Urine Bacteria Absent (Absent) 10/29/17 17:35 Urine Glucose Negative (Negative) 10/29/17 17:35 Urine Ascorbic Acid * (Negative) H 10/29/17 17:35 Urine Opiates Screen None detected (None Detect) 10/29/17 19:35 Ur Barbiturates Screen None detected (None Detect) 10/29/17 19:35 Ur Phencyclidine Scrn None detected (None Detect) 10/29/17 19:35 Ur Amphetamines Screen None detected (None Detect) 10/29/17 19:35 U Benzodiazepines Scrn None detected (None Detect) 10/29/17 19:35 Urine Cocaine Screen None detected (None Detect) 10/29/17 19:35 U Cannabinoids Screen None detected (None Detect) 10/29/17 19:35 - Objective Active Medications: Acetaminophen (Tylenol Tab*) 650 mg PO Q6H PRN PRN Reason: FEVER/PAIN Last Admin: 10/31/17 21:35 Dose: 650 mg Albuterol (Ventolin 2.5 Mg/3 Ml Neb.Jody*) 2.5 mg INH Q2H PRN PRN Reason: SOB/WHEEZING Aspirin (Aspirin Low Dose Tab*) 81 mg PO QAM [facility] Last Admin: 11/02/17 10:03 Dose: Not Given Docusate Sodium (Colace Cap*) 200 mg PO BID [facility] Last Admin: 11/02/17 10:03 Dose: Not Given Heparin Sodium (Porcine) (Heparin Vial(*)) 5,000 units SUBCUT Q8HR [facility] Last Admin: 11/02/17 06:31 Dose: 5,000 units Sodium Chloride (Ns 0.9% 1000 Ml*) 1,000 mls @ 125 mls/hr IV PER RATE [facility] Last Admin: 11/02/17 06:31 Dose: 125 mls/hr Levetiracetam (Keppra Tab*) 500 mg PO BID [facility] Last Admin: 11/02/17 10:03 Dose: Not Given Levothyroxine Sodium (Synthroid Tab*) 25 mcg PO DAILY@0600 [facility] Last Admin: 11/02/17 06:31 Dose: 25 mcg Melatonin (Melatonin (Nf)) 3 mg PO BEDTIME PRN; Protocol PRN Reason: Sleep Metoprolol Succinate (Toprol Xl Tab*) 25 mg PO EVERY OTHER DAY [facility] Last Admin: 11/02/17 10:03 Dose: Not Given Multivitamins/Minerals (Theragran/Minerals Tab*) 1 tab PO DAILY [facility] Last Admin: 11/02/17 10:03 Dose: Not Given Nicotine Polacrilex (Nicotine Gum*) 2 mg PO Q2H PRN PRN Reason: CRAVING Last Admin: 11/01/17 17:43 Dose: 2 mg Omeprazole (Prilosec Cap*) 20 mg PO DAILY@0600 [facility] Last Admin: 11/02/17 06:31 Dose: 20 mg Ondansetron HCl (Zofran Inj*) 4 mg IV Q6H PRN PRN Reason: NAUSEA Sodium Chloride (Sodium Chloride Tab*) 1 gm PO DAILY [facility] Last Admin: 11/02/17 10:03 Dose: Not Given Zolpidem Tartrate (Ambien Tab*) 5 mg PO BEDTIME [facility] Last Admin: 11/01/17 20:26 Dose: 5 mg Vital Signs: Vital Signs: Temp Pulse Resp BP Pulse Ox 98.0 F 142 16 109/57 97 11/02/17 08:09 11/02/17 07:58 11/02/17 09:36 11/02/17 07:58 11/02/17 07:58 Patient Weight: Weight 77 lb 1.6 oz Intake and Output: Intake & Output 10/31/17 11/01/17 11/02/17 11/03/17 06:59 06:59 06:59 06:59 Intake Total 625 600 0 Output Total 300 Balance 325 600 0 Weight 77 lb 1.6 oz Intake: IVPB 55 ABX - CEFTRIAXONE 55 Oral 570 600 0 Output: Urine 300 Other: Estimated Void Medium Large # Bowel Movements 0 1 Estimated Stool Amount Small # Voids 1 1 ADLs: Meal Record Start: 10/30/17 03: 01 Freq: DAILY@0900,1400,1800 Status: Active Protocol: Document 10/30/17 09:00 [id number] (Rec: 10/30/17 10:24 [id number] MED-C11) Document 10/30/17 14:00 [id number] (Rec: 10/30/17 14:59 [id number] MED-C09) Document 10/31/17 14:00 [id number] (Rec: 10/31/17 14:10 [id number] MED-C11) Document 10/31/17 18:00 [id number] (Rec: 10/31/17 22:32 [id number] MED-C05) Document 11/01/17 09:00 [id number] (Rec: 11/01/17 10:14 [id number] MED-C09) Document 11/01/17 13:01 [id number] (Rec: 11/01/17 13:02 [id number] MED-C09) Document 11/01/17 17:40 [id number] (Rec: 11/01/17 17:40 [id number] MED-M03) Document 11/02/17 09:00 [id number] (Rec: 11/02/17 10:04 [id number] MED-C09) Intake and Output Start: 10/30/17 03: 01 Freq: DAILY@0600,1400,2200 Status: Active Protocol: Document 10/30/17 05:28 [id number] (Rec: 10/30/17 05:28 [id number] MED-C04) Document 10/30/17 14:00 [id number] (Rec: 10/30/17 15:00 [id number] MED-C09) Document 10/30/17 22:00 [id number] (Rec: 10/30/17 23:00 [id number] MED-C11) Document 10/31/17 06:00 [id number] (Rec: 10/31/17 06:03 [id number] MED-C42) Document 10/31/17 14:00 [id number] (Rec: 10/31/17 14:10 [id number] MED-C11) Document 10/31/17 22:00 [id number] (Rec: 10/31/17 22:35 [id number] MED-C05) Document 11/01/17 03:49 [id number] (Rec: 11/01/17 03:49 [id number] MEDL-C01) Document 11/01/17 13:01 [id number] (Rec: 11/01/17 13:02 [id number] MED-C09) Document 11/01/17 22:00 [id number] (Rec: 11/01/17 22:41 [id number] MED-C09) Document 11/02/17 01:20 [id number] (Rec: 11/02/17 01:20 [id number] MED-C26) Document 11/02/17 04:03 [id number] (Rec: 11/02/17 04:03 [id number] MED-C26) General Impression: Cachectic woman, speaking in a soft, mumbling voice, alert but confused. Head: Symmetrical Eyes: No Scleral Icterus Ears/Nose/Mouth/Throat: Clear Oropharnyx Neck: NL Appearance and Movements; NL JVP, No Thyroid Enlargement, Masses Cardiovascular: NL Sounds; No Murmurs; No JVD, RRR, No Edema Respiratory: Symmetrical Chest Expansion and Respiratory Effort, - - Distant BS Abdominal: NL Sounds; No Tenderness; No Distention, No Hepatosplenomegaly, - - RUQ and epigastric tenderness to palpation, mild guarding. Extremities: No Edema, No Clubbing, Cyanosis, - Neurological: NL Sensation - Able to say her full name, her age, the town she lives in, the name of her . - Assessment Assessment: This patient is quite confused, and her , who she says is her HCP, is not present. She completed a course of ceftriaxone but is once again tachycardic and hypotensive, and work up is ongoing. She is aware of her status and I did discuss advance directives issues with her. She tells me she would not want CPR attempted and would not want to be intubated, but clearly this directive needs to be confirmed with her HCP, her Bill. I called his number and got an answering machine on which I left a message asking him to call me. For now, she will have to remain a full code. She does have two daughters who live in [place] but she was unable to give me their contact information. There are two local sons of her , who are the patient's stepsons. She does not have life-limiting illness at this time, as far as I can tell. Her abdominal pain is apparently new. I suspect she has dementia with associated delirium, and that her dementia first became apparent after her major surgical procedure in February, during which time she was probably anesthetized for several hours. I would suggest avoiding antipsychotics in light of her emerging extrapyramidal symptoms. Thanks for asking me to see her. - Plan Consult Plan (MU): Palliative - Time On Unit Date of Evaluation: 11/02/17 Hospice Consult Time in: 11:30 Hospice Consult Time Out: 12:30 Hospice Consult Time Total: 60
[2017-11-02 12:52] LABS: Urine Appearance Clear; Urine Blood Negative (Negative); Urine Color Yellow; Urine Ketones Trace (Negative); Urine Protein Negative (Negative); Urine Urobilinogen Negative (Negative)
[2017-11-02] MEDS ORDERED: diPHENhydraMINE PO* 25 MG PO PRN (17:33)
[2017-11-02] MEDS: Zolpidem TAB* 5 MG PO SCH (21:27)
[2017-11-03] MEDS: Levothyroxine TAB* 25 MCG TAB PO SCH (05:43)
[2017-11-03] MEDS: Omeprazole CAP* 20 MG PO SCH (05:43)
[2017-11-03] MEDS: Heparin VIAL(*) 5000 UNITS/ML VIAL (FIVE THOUSAND) SUBCUT SCH ×3 (05:44→21:53)
[2017-11-03] MEDS: NS 0.9% 1000 ML* 1,000 ML IV SCH ×2 (07:39→18:01)
[2017-11-03] MEDS: levETIRAcetam TAB* 500 MG PO SCH ×2 (08:44→21:43)
[2017-11-03] MEDS: Docusate CAP* 100 MG PO SCH ×2 (08:49→21:43)
[2017-11-03] MEDS: Multivitamins/Minerals TAB PO SCH (08:49)
[2017-11-03] MEDS: Sodium Chloride TAB* 1 GM PO SCH (08:49)
[2017-11-03] MEDS: Aspirin Low Dose CHEW TAB* 81 MG PO SCH (08:49)
--- NOTE | 2017-11-03 09:24 | PN ---
Subjective Date of Service: 11/03/17 Interval History: Patient seen and examined at bedside. [place] fever, chills, shortness of breath, chest discomfort, N/V/D. Pt states that she wants to go home today. Extrapyramidal symptoms have resolved. Family History: Unchanged from Admission Social History: Unchanged from Admission Past Medical History: Unchanged from Admission Objective Active Medications: Acetaminophen (Tylenol Tab*) 650 mg PO Q6H PRN Reason: FEVER/PAIN Albuterol (Ventolin 2.5 Mg/3 Ml Neb.Jody*) 2.5 mg INH Q2H PRN Reason: SOB/ WHEEZING Aspirin (Aspirin Low Dose Tab*) 81 mg PO QAM JERI Diphenhydramine HCl (Benadryl Po*) 25 mg PO Q6H PRN Reason: extrapyramidal symptoms Docusate Sodium (Colace Cap*) 200 mg PO BID JERI Heparin Sodium (Porcine) (Heparin Vial(*)) 5,000 units SUBCUT Q8HR [facility] Sodium Chloride (Ns 0.9% 1000 Ml*) 1,000 mls @ 125 mls/hr IV PER RATE [facility] Levetiracetam (Keppra Tab*) 500 mg PO BID JERI Levothyroxine Sodium (Synthroid Tab*) 25 mcg PO DAILY@0600 [facility] Melatonin (Melatonin (Nf)) 3 mg PO BEDTIME PRN; Protocol Reason: Sleep Metoprolol Succinate (Toprol Xl Tab*) 25 mg PO EVERY OTHER DAY [facility] Multivitamins/Minerals (Theragran/Minerals Tab*) 1 tab PO DAILY [facility] Nicotine Polacrilex (Nicotine Gum*) 2 mg PO Q2H PRN Reason: CRAVING Omeprazole (Prilosec Cap*) 20 mg PO DAILY@0600 JERI Ondansetron HCl (Zofran Inj*) 4 mg IV Q6H PRN Reason: NAUSEA Sodium Chloride (Sodium Chloride Tab*) 1 gm PO DAILY JERI Zolpidem Tartrate (Ambien Tab*) 5 mg PO BEDTIME [facility] Vital Signs - 8 hr 11/03/17 11/03/17 03:14 08:25 Temperature 98.5 F 97.7 F Pulse Rate 49 118 Respiratory 16 Rate Blood Pressure 153/67 159/78 (mmHg) O2 Sat by Pulse 100 95 Oximetry Oxygen Devices in Use Now: None Appearance: NAD, sitting up in a chair Ears/Nose/Mouth/Throat: Mucous Membranes Moist Respiratory: Symmetrical Chest Expansion and Respiratory Effort, Clear to Auscultation Cardiovascular: NL Sounds; No Murmurs; No JVD, RRR - , tachy Abdominal: NL Sounds; No Tenderness; No Distention Extremities: No Edema Skin: No Rash or Ulcers Neurological: NL Muscle Strength and Tone, - - Alert and Oriented to person and place Lines/Tubes/Other Access: Clean, Dry and Intact Flores - patent, draining clear yellow urine, Clean, Dry and Intact Peripheral IV - site benign Nutrition: Taking PO's Result Diagrams: 11/03/17 06:57 11/01/17 11:27 Microbiology and Other Data: Microbiology 11/02/17 05:35 Aerobic Blood Culture - Preliminary No Source Provided No Growth Day 1 Anaerobic Blood Culture - Preliminary No Growth Day 1 Diagnostic Imaging: . Assess/Plan/Problems-Billing Assessment: Ms. Honeycutt is a 77 year old female patient with history of breast and lung CA that presents with for confusion and weakness found to have UTI which was treated appropriately with ceftriaxone but now presents with worsening leukocytosis, worsening confusion, and tachycardia. - Patient Problems (1) Tachycardia Code(s): R00.0 - TACHYCARDIA, UNSPECIFIED SNOMED Code(s): 0580709 Comment: - Patient newly tachycardic yesterday AM, appeared sinus. - Improved with fluids and placement of flores. Worsening leukocytosis, treated appropriately for UTI. Suspect this was all related to urinary retention. - Blood cultures drawn this morning, no growth day 1. - Repeat UA negative, chest xray with atelectasis only. - Has not received metoprolol since 10/31, will change to daily. (2) Confusion Code(s): R41.0 - DISORIENTATION, UNSPECIFIED SNOMED Code(s): 177128261 Comment: - Improved - Likely component of delirium in setting of dementia with possible exacerbation by UTI. - CT head chronic white matter disease, pagetoid change of skull. - Oncology input appreciated - EEG without epileptiform discharges. (3) Severe protein-calorie malnutrition Code(s): E43 - UNSPECIFIED SEVERE PROTEIN-CALORIE MALNUTRITION SNOMED Code(s) : 726276574 Comment: - Cachetic - Severe body fat loss and suspected PO intake less than 75% of needs for greater than 1 month. - Nutrition consult, pending (4) UTI (urinary tract infection) Comment: - E. Coli sens to ceftriaxone. - Completed 3 day course, last dose 11/01. - UTI might explain acute on chronic confusional state. (5) HTN (hypertension) Code(s): I10 - ESSENTIAL (PRIMARY) HYPERTENSION SNOMED Code(s): 06583252 Comment: - SBP 120-150's - Continue metoprolol (increased to daily) (6) History of breast cancer Code(s): Z85.3 - PERSONAL HISTORY OF MALIGNANT NEOPLASM OF BREAST SNOMED Code( s): 949530542 Comment: - Stable; oncology note 10/30 details this well. (7) History of lung cancer Code(s): Z85.118 - PERSONAL HISTORY OF MALIGNANT NEOPLASM OF BRONCHUS AND LUNG SNOMED Code(s): 079409852 Comment: - s/p partial pneumonectomy (8) DVT prophylaxis Code(s): KRR3162 - SNOMED Code(s): 095915153 Comment: - heparin subq (9) Full code status Code(s): Z78.9 - OTHER SPECIFIED HEALTH STATUS SNOMED Code(s): 895589603 Status and Disposition: Inpatient. Anticipate discharge to [facility] when medically stable. Overall prognosis is poor, palliative care consulted, input appreciated.
[2017-11-03 09:31] LABS: ABS Basophils 0.1 10^3/ul (0-0.2); ABS Eosinophils 0 10^3/ul (0-0.6); ABS Lymphocytes 0.9 10^3/ul (1.0-4.8); ABS Monocytes 0.9 10^3/ul (0-0.8); ABS Neutrophils 9.8 10^3/ul (1.5-7.7); ABS Nucleated RBC 0 10^3/ul; Eosinophil % 0.3 % (0-6); Hematocrit 36 % (35-47); Hemoglobin 11.7 g/dl (12.0-16.0); Lymphocyte % 7.5 % (25-47); Mean Corpuscular HGB Conc 33 g/dl (31-36); Mean Corpuscular Hemoglobin 32 pg (27-31); Mean Corpuscular Volume 97 fL (80-97); Mean Platelet Volume 9 um3 (7.4-10.4); Nucleated Red Blood Cells % 0; Platelet Count 215 10^3/ul (150-450); Red Blood Count 3.65 10^6/ul (4.0-5.4); Red Cell Distribution Width 14 % (10.5-15); White Blood Count 11.6 10^3/ul (3.5-10.8)
[2017-11-03] MEDS: Metoprolol Succinate XL TAB* 25 MG PO SCH (10:44)
[2017-11-03 20:37] LABS: EGFR Non-African American 100.5 (>60)
[2017-11-03] MEDS: Zolpidem TAB* 5 MG PO SCH (21:43)
[2017-11-04] MEDS ORDERED: Metoprolol Tartrate IV* 1 MG/ML 5 ML VIAL IV ONE (01:48)
[2017-11-04] MEDS: NS 0.9% 1000 ML* 1,000 ML IV SCH ×2 (04:53→19:54)
[2017-11-04] MEDS: Heparin VIAL(*) 5000 UNITS/ML VIAL (FIVE THOUSAND) SUBCUT SCH ×3 (06:02→20:54)
[2017-11-04 06:26] LABS: Hematocrit 33 % (35-47); Hemoglobin 11.6 g/dl (12.0-16.0); Mean Corpuscular HGB Conc 35 g/dl (31-36); Mean Corpuscular Hemoglobin 32 pg (27-31); Mean Corpuscular Volume 92 fL (80-97); Mean Platelet Volume 8 um3 (7.4-10.4); Platelet Count 230 10^3/ul (150-450); Red Blood Count 3.63 10^6/ul (4.0-5.4); Red Cell Distribution Width 14 % (10.5-15); White Blood Count 12.6 10^3/ul (3.5-10.8)
[2017-11-04] MEDS: hydrALAZINE IV* 20 MG/ML VIAL IV SLOW PU PRN (06:28)
[2017-11-04 06:42] LABS: ABS Basophils 0.1 10^3/ul (0-0.2); ABS Eosinophils 0 10^3/ul (0-0.6); ABS Lymphocytes 0.8 10^3/ul (1.0-4.8); ABS Monocytes 0.9 10^3/ul (0-0.8); ABS Neutrophils 10.9 10^3/ul (1.5-7.7); ABS Nucleated RBC 0 10^3/ul; Eosinophil % 0.2 % (0-6); Nucleated Red Blood Cells % 0
[2017-11-04 06:44] LABS: EGFR Non-African American 122.1 (>60)
[2017-11-04] MEDS ORDERED: Potassium Chlor TAB* 20 MEQ TAB.ER PO ONE (07:52)
[2017-11-04] MEDS ORDERED: KCL 20 MEQ/100 ML IVPREMIX* 20 MEQ/100 ML BAG IV SCH (08:00)
[2017-11-04] MEDS ORDERED: Magnesium Sulf 4 GM/100 ML IV* 4,000 MG/100 ML BAG IVPB ONE (08:22)
[2017-11-04] MEDS ORDERED: Potassium Chloride IV* 40 MEQ in NS 0.9% 250 ML* 250 ML IVPB ONE (09:00)
[2017-11-04] MEDS: Aspirin Low Dose CHEW TAB* 81 MG PO SCH (09:34)
[2017-11-04] MEDS: Metoprolol Succinate XL TAB* 25 MG PO SCH (09:34)
[2017-11-04] MEDS: Multivitamins/Minerals TAB PO SCH (09:34)
[2017-11-04] MEDS: Sodium Chloride TAB* 1 GM PO SCH (09:34)
[2017-11-04] MEDS: levETIRAcetam TAB* 500 MG PO SCH ×2 (09:34→20:52)
[2017-11-04] MEDS: Omeprazole CAP* 20 MG PO SCH (09:34)
[2017-11-04] MEDS: Docusate CAP* 100 MG PO SCH ×2 (09:34→20:11)
[2017-11-04] MEDS: Levothyroxine TAB* 25 MCG TAB PO SCH (09:34)
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
[2017-11-04] MEDS: Zolpidem TAB* 5 MG PO SCH (20:52)
[2017-11-05] MEDS: NS 0.9% 1000 ML* 1,000 ML IV SCH (03:57)
[2017-11-05] MEDS: hydrALAZINE IV* 20 MG/ML VIAL IV SLOW PU PRN (04:22)
[2017-11-05] MEDS: Omeprazole CAP* 20 MG PO SCH (05:33)
[2017-11-05] MEDS: Acetaminophen TAB* 325 MG PO PRN (05:33)
[2017-11-05] MEDS: Levothyroxine TAB* 25 MCG TAB PO SCH (05:33)
[2017-11-05] MEDS: Heparin VIAL(*) 5000 UNITS/ML VIAL (FIVE THOUSAND) SUBCUT SCH ×2 (05:35→13:25)
[2017-11-05 08:19] LABS: ABS Basophils 0.1 10^3/ul (0-0.2); ABS Eosinophils 0 10^3/ul (0-0.6); ABS Lymphocytes 0.7 10^3/ul (1.0-4.8); ABS Neutrophils 11.8 10^3/ul (1.5-7.7); ABS Nucleated RBC 0 10^3/ul; Eosinophil % 0.3 % (0-6); Hematocrit 35 % (35-47); Hemoglobin 11.8 g/dl (12.0-16.0); Lymphocyte % 5.1 % (25-47); Mean Corpuscular HGB Conc 34 g/dl (31-36); Mean Corpuscular Hemoglobin 32 pg (27-31); Mean Corpuscular Volume 96 fL (80-97); Mean Platelet Volume 8 um3 (7.4-10.4); Nucleated Red Blood Cells % 0.1; Platelet Count 199 10^3/ul (150-450); Red Blood Count 3.67 10^6/ul (4.0-5.4); Red Cell Distribution Width 14 % (10.5-15); White Blood Count 13.6 10^3/ul (3.5-10.8)
[2017-11-05 08:29] LABS: EGFR Non-African American 122.1 (>60)
[2017-11-05] MEDS: Aspirin Low Dose CHEW TAB* 81 MG PO SCH (09:19)
[2017-11-05] MEDS: Docusate CAP* 100 MG PO SCH (09:19)
[2017-11-05] MEDS: Sodium Chloride TAB* 1 GM PO SCH (09:19)
[2017-11-05] MEDS: Metoprolol Succinate XL TAB* 25 MG PO SCH (09:19)
[2017-11-05] MEDS: Multivitamins/Minerals TAB PO SCH (09:19)
[2017-11-05] MEDS: levETIRAcetam TAB* 500 MG PO SCH (09:19)
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
[2017-11-05] MEDS ORDERED: Cefdinir cap (NF) 300 MG CAP PO SCH (09:44)
[2017-11-05] MEDS ORDERED: Metoprolol Succinate XL TAB* 25 MG PO ONE (09:49)
--- NOTE | 2017-11-05 10:33 | PN ---
Progress Note - Progress Note Date of Service: 11/05/17 Note: This morning I met with the patient's and HCP, Rickie, and her stepson, to discuss goals of care and advance directives. The HCP had many questions concerning the patient's status and prognosis. At this point, the patient is maintaining her weight, and has managed to maintain an albumin of 3.8 (largely with the help of 3 cans of Ensure each day). She continues to have and elevated wbc, and confusion/delirium which may be her presentation of evolving dementia. 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 He also notes that the patient has a history of achalasia for which she had surgery to remove her gastroesophageal sphincter about 10 years ago, but she still tends to choke and gag on her food, and often regurgitates swallowed food. The patient's and stepson were educated about the process of attempted CPR, intubation and mechanical ventilation. They agreed that the process would be traumatic for the patient, especially in her frail and debilitated state. They are hopeful that a short term rehab stay at [facility] will help the patient recover some of her ability to function so that she can eventually return home. She is scheduled to go to [facility] today. They are apprehensive about telling the patient's sisters and daughters in [place] about her DNR/DNI status, but they agreed with this measure. They were not willing to make a decision about [facility] for the time being. The MOLST form was completed for the chart.
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
[2017-11-05] MEDS ORDERED: LORazepam TAB(*) 0.5 MG PO PRN (11:47)
[2017-11-05 12:52] VITALS: BP 149/65
== END 2017-11-05 14:05 | DRG 689 ==
LOC: ED 15:17 → MED 10-30 01:43 → INTOOBSV 10-30 11:44 → OBSVTOIN 10-30 11:44 → MED 10-30 15:21 → OBSVTOIN 10-31 11:44
PROVIDERS: ADMIT Hospitalist; ATTEND Internal Medicine
PROC: 4A00X4Z Measurement of Central Nervous Electrical Activity, External Approach (ICD-10-PCS; principal; 2017-11-01)
PROC: 0T9B70Z Drainage of Bladder with Drainage Device, Via Natural or Artificial Opening (ICD-10-PCS; 2017-11-01)
DX: N39.0 Urinary tract infection, site not specified (principal); E43 Unspecified severe protein-calorie malnutrition; I95.9 Hypotension, unspecified; F05 Delirium due to known physiological condition; I48.0 Paroxysmal atrial fibrillation; R64 Cachexia; E83.42 Hypomagnesemia; G40.909 Epilepsy, unspecified, not intractable, without status epilepticus; Z68.1 Body mass index [BMI] 19.9 or less, adult; J44.9 Chronic obstructive pulmonary disease, unspecified; E03.9 Hypothyroidism, unspecified; E78.5 Hyperlipidemia, unspecified; I10 Essential (primary) hypertension; I25.10 Atherosclerotic heart disease of native coronary artery without angina pectoris; I73.00 Raynaud's syndrome without gangrene; K21.9 Gastro-esophageal reflux disease without esophagitis; F32.9 Major depressive disorder, single episode, unspecified; B96.20 Unspecified Escherichia coli [E. coli] as the cause of diseases classified elsewhere; R00.0 Tachycardia, unspecified; E87.6 Hypokalemia; F41.9 Anxiety disorder, unspecified; I05.9 Rheumatic mitral valve disease, unspecified; R06.02 Shortness of breath; F03.90 Unspecified dementia, unspecified severity, without behavioral disturbance, psychotic disturbance, mood disturbance, and anxiety; M88.9 Osteitis deformans of unspecified bone; S06.890A Other specified intracranial injury without loss of consciousness, initial encounter; D72.829 Elevated white blood cell count, unspecified; I65.29 Occlusion and stenosis of unspecified carotid artery; R33.9 Retention of urine, unspecified; Z85.118 Personal history of other malignant neoplasm of bronchus and lung; I25.2 Old myocardial infarction; Z95.5 Presence of coronary angioplasty implant and graft; Z79.82 Long term (current) use of aspirin; Z90.2 Acquired absence of lung [part of]; Z82.49 Family history of ischemic heart disease and other diseases of the circulatory system; Z98.42 Cataract extraction status, left eye; Z98.41 Cataract extraction status, right eye; Z85.3 Personal history of malignant neoplasm of breast; Z92.21 Personal history of antineoplastic chemotherapy; Z92.3 Personal history of irradiation; Z95.0 Presence of cardiac pacemaker; Z72.89 Other problems related to lifestyle; V49.9XXA Car occupant (driver) (passenger) injured in unspecified traffic accident, initial encounter; Y92.488 Other paved roadways as the place of occurrence of the external cause
CPT/HCPCS: 36415; 70450; 70460; 70496; 70498; 71045; 80048; 80053; 80307; 81003; 81015; 82565; 83605; 83735; 83880; 84443; 84484; 84520; 85025; 85027; 85610; 85730; 86140; 87040; 87077; 87086; 87186; 93005; 95816; 99232; 99285; A9270-GY; G0378; G8978-GP-CL; G8979-GP-CI; J0360; J0696; J1200; J1630; J1644; J1956; J2060; J3475; J3480; J3490; Q9967

== ENCOUNTER 2017-11-28 16:08 | Inpatient (IN) | payer MEDICARE, OTHER ==
[2017-11-28] MEDS ORDERED: NS 0.9% 1000 ML*IV.FLUID IV ONE (16:30)
[2017-11-28] MEDS ORDERED: metroNIDAZOLE TAB* 250 MG PO ONE (16:31)
[2017-11-28 16:46] LABS: Hematocrit 48 % (35-47); Hemoglobin 15.8 g/dl (12.0-16.0); Mean Corpuscular HGB Conc 33 g/dl (31-36); Mean Corpuscular Hemoglobin 31 pg (27-31); Mean Corpuscular Volume 95 fL (80-97); Mean Platelet Volume 8.6 um3 (7.4-10.4); Platelet Count 230 10^3/ul (150-450); Red Blood Count 5.11 10^6/ul (4.0-5.4); Red Cell Distribution Width 15 % (10.5-15); White Blood Count 17.1 10^3/ul (3.5-10.8)
[2017-11-28 16:53] LABS: INR 0.92 (0.77-1.02)
[2017-11-28] MEDS ORDERED: metroNIDAZOLE IV 500 MG/100ML* 500 MG/100 ML BAG IVPB ONE (16:57)
--- NOTE | 2017-11-28 17:04 | RAD ---
Indication: Sepsis. Fever. Chronic obstructive pulmonary disease. Comparison: November 02, 2017 Technique: Upright AP 1635 hours Report: Elevated lung volumes and both diffuse minimal prominence of the interstitial markings and patchy rarefaction of the mid to upper lung zone interstitial markings. No focal pulmonary lesion, compelling alveolar consolidation, pleural effusion, pneumothorax. Negative for cardiomegaly. RIGHT atrial and RIGHT ventricular level pacemaker leads. Unremarkable central pulmonary vasculature and mediastinal contours. Negative for free air beneath the diaphragm. RIGHT axillary surgical clips. IMPRESSION: Stigmata of obstructive lung disease. No acute pulmonary or cardiac process evident.
[2017-11-28 17:06] LABS: EGFR Non-African American 33.1 (>60)
[2017-11-28 17:18] LABS: Monocytes % 3 % (0-7)
[2017-11-28] MEDS ORDERED: Nicotine GUM* 2 MG PO PRN (18:21)
[2017-11-28] MEDS ORDERED: Magnesium Sulf 4 GM/100 ML IV* 4,000 MG/100 ML BAG IVPB ONE (18:36)
[2017-11-28] MEDS ORDERED: Iodixanol* (CONTRAST) 320 MG/ML 100 ML SDV IV ONE (18:47)
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
[2017-11-28] MEDS ORDERED: Acetaminop/Codeine 30 MG TAB* 1 TAB (300 MG/30 MG) PO PRN (19:08)
[2017-11-28] MEDS ORDERED: ORPHENADRINE CITRATE 100 MG PO PRN (19:08)
[2017-11-28] MEDS ORDERED: Metoprolol Tartrate IV* 1 MG/ML 5 ML VIAL IV ONE (19:10)
--- NOTE | 2017-11-28 19:58 | RAD ---
INDICATION: RIGHT lower quadrant pain, diarrhea, sepsis.. Previous esophagogastric Junction surgery. History of RIGHT breast cancer. COMPARISON: December 15, 2016 CT. TECHNIQUE: Multidetector CT images were obtained from the lung bases to the ischial tuberosities with 62 mL Visipaque 320 IV and oral contrast. Multiplanar reformation. REPORT: Grossly clear lung bases. Distended gallbladder without additional CT abnormality of the gallbladder. Mild intra and extrahepatic biliary dilatation without change. Mild pancreatic duct dilatation without change. No focal pancreatic lesion or inflammatory process evident. No conspicuous lesion or stone evident along the course of the common bile duct. Unremarkable spleen. While incompletely distention limits assessment there is suggestion of circumferential mural thickening at the gastric antrum similar to the prior exam. Unremarkable jejunal and ileal small bowel loops. Unremarkable contrast opacified appendix. Severe diverticulosis of the sigmoid colon without findings of diverticulitis. Enteric contrast extends to the rectum. Negative for ascites, free air, hernias. Top normal size of the LEFT adrenal gland with triangular configuration similar to the prior exam. Unremarkable RIGHT adrenal gland. Symmetric delayed nephrograms and pyelograms. No suspicious focal renal lesions or hydronephrosis. No suspicious finding along the course of the nondilated ureters. Decompressed urinary bladder. Vaginal prolapse. Calcified fibroid at the uterine fundus. Unremarkable adnexal regions. Negative for lymphadenopathy. Atherosclerotic plaque. Significant visceral and peripheral atherosclerotic plaque. Negative for aortoiliac aneurysm. The IVC is largely decompressed consistent with low volume state. Normal variant retroaortic LEFT renal vein. Negative for suspicious osseous lesions. IMPRESSION: 1. Given an introduction biliary dilatation, pancreatic duct dilatation, or gallbladder distention and occult lesion at the pancreatic head or distal common bile duct should be considered. Correlate with clinical assessment and consider further assessment with a dedicated pancreatic mass protocol CT or potentially ERCP. 2. Bilateral symmetric delayed nephrograms and pyelograms and evidence for low volume state. Consider acute prerenal renal failure. 3. Suggestion of mural thickening at the gastric antrum. Incomplete distention of the gastric antrum limits assessment. Correlate with clinical assessment and consider upper GI series or endoscopy for further assessment. 4. Negative for lymphadenopathy.
[2017-11-28] MEDS: NS 0.9% 1000 ML* 1,000 ML IV SCH (21:21)
[2017-11-28] MEDS: levETIRAcetam TAB* 500 MG PO SCH (21:31)
[2017-11-28] MEDS: LORazepam TAB(*) 0.5 MG PO PRN (21:32)
[2017-11-28] MEDS: Zolpidem TAB* 5 MG PO PRN (21:32)
[2017-11-28] MEDS: Sodium Chloride TAB* 1 GM PO SCH (22:50)
[2017-11-28] MEDS: metroNIDAZOLE IV 500 MG/100ML* 500 MG/100 ML BAG IVPB SCH (22:50)
[2017-11-28] MEDS: CMC:Melatonin (NF) 3 MG TAB PO PRN (22:50)
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
[2017-11-29] MEDS: metroNIDAZOLE IV 500 MG/100ML* 500 MG/100 ML BAG IVPB SCH (03:36)
[2017-11-29] MEDS: Acetaminophen TAB* 325 MG PO PRN ×2 (03:36→17:05)
[2017-11-29] MEDS: Levothyroxine TAB* 25 MCG TAB PO SCH (05:52)
[2017-11-29 06:13] LABS: ABS Basophils 0 10^3/ul (0-0.2); ABS Eosinophils 0 10^3/ul (0-0.6); ABS Lymphocytes 0.2 10^3/ul (1.0-4.8); ABS Monocytes 0.4 10^3/ul (0-0.8); ABS Neutrophils 14.7 10^3/ul (1.5-7.7); ABS Nucleated RBC 0 10^3/ul; Eosinophil % 0.3 % (0-6); Hematocrit 34 % (35-47); Hemoglobin 11.3 g/dl (12.0-16.0); Lymphocyte % 1.1 % (25-47); Mean Corpuscular HGB Conc 33 g/dl (31-36); Mean Corpuscular Hemoglobin 30 pg (27-31); Mean Corpuscular Volume 92 fL (80-97); Mean Platelet Volume 8.2 um3 (7.4-10.4); Nucleated Red Blood Cells % 0.1; Platelet Count 191 10^3/ul (150-450); Red Blood Count 3.72 10^6/ul (4.0-5.4); Red Cell Distribution Width 15 % (10.5-15); White Blood Count 15.4 10^3/ul (3.5-10.8)
[2017-11-29] MEDS: Docusate CAP* 100 MG PO SCH (08:08)
[2017-11-29] MEDS: Metoprolol Succinate XL TAB* 25 MG PO SCH (08:09)
[2017-11-29] MEDS: Sodium Chloride TAB* 1 GM PO SCH ×2 (08:13→21:11)
[2017-11-29] MEDS: PARoxetine HCL TAB* 20 MG PO SCH (08:13)
[2017-11-29] MEDS: Multivitamins/Minerals TAB PO SCH (08:13)
[2017-11-29] MEDS: levETIRAcetam TAB* 500 MG PO SCH ×2 (08:14→21:11)
[2017-11-29] MEDS: Aspirin 81 mg CHEW TAB* 81 MG TAB.CHEW PO SCH (08:14)
[2017-11-29] MEDS: Potassium Chlor TAB* 20 MEQ TAB.ER PO SCH ×2 (08:15→11:55)
[2017-11-29] MEDS: NS 0.9% 1000 ML* 1,000 ML IV SCH (08:16)
[2017-11-29] MEDS: buPROPion TAB* 75 MG PO SCH (08:24)
[2017-11-29] MEDS ORDERED: Potassium Chloride LIQUID* 20 MEQ PACKET PO ONE (12:40)
[2017-11-29] MEDS ORDERED: Potassium Chloride IV* 60 MEQ in NS 0.9% 500 ML* 500 ML IVPB ONE (13:00)
[2017-11-29] MEDS ORDERED: KCL 20 MEQ/100 ML IVPREMIX* 20 MEQ/100 ML BAG IV SCH (13:00)
--- NOTE | 2017-11-29 13:09 | CONS ---
CONSULTATION REPORT: DATE OF CONSULT: 11/29/17 REQUESTING PHYSICIAN: Dr. Crandall. CONSULTING SERVICE: Infectious Disease. REASON FOR CONSULT: Diarrhea, C. difficile. IMPRESSION: 1. C. difficile colitis with leukocytosis, slight improvement today. 2. She had a course of oral antibiotics early in November for urinary tract infection. 3. History of lung cancer, status post right lobectomy. RECOMMENDATIONS: 1. Stop IV Flagyl. Start vancomycin 125 mg by mouth 4 times a day. Follow her bowel movements here. It may take a few days as long as she is having steady decrease in the frequency and increased formation of her stools that would suggest we are heading in the right direction. 2. Knowing that there is a reasonable rate of false positive with the test, if she is not improving, we will have to consider other diagnoses as a cause for diarrhea. HISTORY OF PRESENT ILLNESS: This is a 77-year-old woman admitted with diarrhea and weakness. She cannot provide a lot of the details of the recent history which were obtained instead from discussion with Dr. Crandall and review of the medical record. She had been at [facility] and then end of October or early November, treated at [facility] for an E. coli, urinary tract infection , discharged on cefdinir, which she was to have completed in the first week of November. She does not recall any recent antibiotics. She thinks she has had diarrhea for about 3 or 4 days that is frequent, loose with some urgency, not sure if it will occur at night. Because of progressive weakness and dehydration , came to the hospital yesterday. She had collapsed in the bathroom before she came in and did not have any loss of consciousness. She has had liquid stools overnight and a C. diff test was positive on admission and a CT of the abdomen and pelvis done in the setting of some mild right lower quadrant pain, which today she says is mostly resolved. CT showed some biliary dilatation and pancreatic duct dilatation. No pancreatic lesion. She denies any right upper quadrant pain. PAST MEDICAL HISTORY: 1. Lung cancer, treated with lobectomy. 2. Achalasia. 3. Epilepsy. 4. Hypertension. 5. Hyperlipidemia. 6. Hypothyroidism. 7. Coronary artery disease. 8. History of NC and PCI. 9. Status post esophageal surgery for achalasia. 10. Status post tonsillectomy. MEDICATIONS: 1. Tylenol. 2. Aspirin. 3. Bupropion. 4. Keppra. 5. Melatonin. 6. Metoprolol. 7. Flagyl 500 mg IV every 8 hours. 8. Paroxetine. 9. Ambien. ALLERGIES: No known drug allergies. FAMILY HISTORY: Mother and father both from coronary artery disease in their 40's. SOCIAL HISTORY: She was recently at [facility] and then living at home. She is a past smoker, occasional wine. REVIEW OF SYSTEMS: A 14-point review of systems was negative. PHYSICAL EXAM: Vital Signs: Temperature 37, heart rate is 120, respiratory rate is 20, blood pressure 88/54, oxygen saturation 97% on 2 L by nasal cannula. In general, she is awake and not in distress. Neurologic: She is oriented x3. Follows all commands. HEENT: There is no conjunctival hemorrhage. Mucous membranes are dry. Neck is supple without mass. Lymph Nodes: There is no inguinal, axillary, or epitrochlear lymphadenopathy. Heart is regular rate and rhythm without murmurs, rubs, or gallops. Lungs: Clear to auscultation bilaterally. Abdomen: Soft, nontender, non-distended. There is no tenderness to palpation in the upper quadrant. Skin: There is no rash or splinter hemorrhages. Musculoskeletal: There is no spine tenderness to palpation. There is no joint synovitis. LABORATORY DATA: Microbe data: C. diff PCR positive. Please see impressions and recommendations outlined above, which I have discussed with Dr. Crandall. Thanks for asking me to see Ms. Honeycutt in consultation. [id number]/[facility] #: [id number] [facility] SERVICES[facility]uel
[2017-11-29] MEDS: Vancomycin CAP* 125 MG CAP PO SCH ×3 (13:36→21:11)
[2017-11-29] MEDS ORDERED: Potassium Phosphate IV* 15 MMOLE in NS 0.9% 250 ML* 250 ML IVPB ONE (14:30)
--- NOTE | 2017-11-29 17:03 | PN ---
Subjective Date of Service: 11/29/17 Interval History: . patient very weak and listless. denies pain ongoing copious liquid stool and associated electrolyte derangements PICC ordered and repletion underway discussions with patient's and son 2x today. all questions answered. ID consultation done and is appreciated. . Family History: Unchanged from Admission Social History: Unchanged from Admission Past Medical History: Unchanged from Admission Objective Active Medications: . Acetaminophen (Tylenol Tab*) 650 mg PO Q4H PRN PRN Reason: FEVER/PAIN Last Admin: 11/29/17 03:36 Dose: 650 mg Acetaminophen/Codeine Phosphate (Tylenol/Codeine 30 Mg Tab*) 1 tab PO Q12H PRN PRN Reason: PAIN Aspirin (Aspirin Low Dose Tab*) 81 mg PO QAM [facility] Last Admin: 11/29/17 08:14 Dose: 81 mg Bupropion HCl (Wellbutrin Tab*) 75 mg PO DAILY [facility] Last Admin: 11/29/17 08:24 Dose: 75 mg Docusate Sodium (Colace Cap*) 100 mg PO DAILY [facility] Last Admin: 11/29/17 08:08 Dose: Not Given Sodium Chloride (Ns 0.9% 1000 Ml*) 1,000 mls @ 100 mls/hr IV PER RATE [facility] Last Admin: 11/29/17 08:16 Dose: 100 mls/hr Lactated Ringer's (Lactated Ringers 1000 Ml Bag*) 1,000 mls @ 0 mls/hr IV WIDE OPEN [facility] PRN Reason: Wide Open Stop: 11/29/17 19:01 Last Admin: 11/28/17 19:41 Dose: 1,000 mls/hr Potassium Phosphate 15 mmole/ (Sodium Chloride) 255 mls @ 42 mls/hr IVPB ONCE ONE Stop: 11/29/17 20:34 Potassium Chloride 60 meq/ (Sodium Chloride) 530 mls @ 88.333 mls/hr IVPB ONCE ONE Stop: 11/29/17 18:59 Last Admin: 11/29/17 16:14 Dose: 88.333 mls/hr Levetiracetam (Keppra Tab*) 500 mg PO BID [facility] Last Admin: 11/29/17 08:14 Dose: 500 mg Levothyroxine Sodium (Synthroid Tab*) 25 mcg PO 0600 [facility] Last Admin: 03/26/18 05:52 Dose: 25 mcg Lorazepam (Ativan Tab(*)) 0.5 mg PO TID PRN PRN Reason: ANXIETY Last Admin: 11/28/17 21:32 Dose: 0.5 mg Melatonin (Melatonin (Nf)) 3 mg PO BEDTIME PRN; Protocol PRN Reason: Sleep Last Admin: 11/28/17 22:50 Dose: 3 mg Metoprolol Succinate (Toprol Xl Tab*) 50 mg PO DAILY [facility] Last Admin: 11/29/17 08:09 Dose: Not Given Multivitamins/Minerals (Theragran/Minerals Tab*) 1 tab PO DAILY [facility] Last Admin: 11/29/17 08:13 Dose: 1 tab Nicotine Polacrilex (Nicotine Gum*) 2 mg PO Q2H PRN PRN Reason: CRAVING Nf: (Orphenadrine Citrate [ Orphenadrine Citrate ] 100 Mg) 100 mg PO BID PRN PRN Reason: HEADACHE/DISCOMFORT Paroxetine HCl (Paxil Tab*) 20 mg PO DAILY [facility] Last Admin: 11/29/17 08:13 Dose: 20 mg Sodium Chloride (Sodium Chloride Tab*) 1 gm PO BID [facility] Last Admin: 11/29/17 08:13 Dose: 1 gm Vancomycin HCl (Vancomycin Cap*) 125 mg PO QID [facility] Last Admin: 11/29/17 16:52 Dose: 125 mg Zolpidem Tartrate (Ambien Tab*) 5 mg PO BEDTIME PRN PRN Reason: SLEEP Last Admin: 11/28/17 21:32 Dose: 5 mg . Vital Signs - 8 hr 11/29/17 11/29/17 09:05 11:23 Temperature 97.3 F Pulse Rate 89 Respiratory 14 Rate Blood Pressure 88/54 92/51 (mmHg) Oxygen Devices in Use Now: Nasal Cannula Appearance: NAD; frail and ill appearing Ears/Nose/Mouth/Throat: Clear Oropharnyx, - - dry MM Neck: Trachea Midline Respiratory: Symmetrical Chest Expansion and Respiratory Effort Cardiovascular: NL Sounds; No Murmurs; No JVD Abdominal: - - no distention Lymphatic: No Cervical Adenopathy Extremities: No Edema, - - poor muscle bulk Skin: No Rash or Ulcers Neurological: Alert and Oriented x 3 Lines/Tubes/Other Access: Clean, Dry and Intact Peripheral IV, Clean, Dry and Intact PICC Line - midline inserted today, PICC pending Nutrition: Taking PO's Result Diagrams: 11/29/17 05:51 11/29/17 05:51 Assess/Plan/Problems-Billing . Assessment: 77 yo female with multiple medical problems, s/p URI and abx recently, now with C. Diff colitis. Severe hypokalemia, ARF, hyponatremia, metabolic acidosis secondary to illness. . - Patient Problems (1) C. difficile colitis Current Visit: Yes Status: Acute Priority: High Comment: - IC consultation appreciated; Vanco 125 mg PO QID started - IVF - LR bolus and infusion - Aggressive K repletion - noted metabolic acidosis c/w bicarb losses from GI tract - hypokalemia and hyponatremia secondary to that process as well. (2) Afib Current Visit: No Status: Acute Priority: High Code(s): I48.91 - UNSPECIFIED ATRIAL FIBRILLATION Comment: - Rate controlled after IVF - Continue metoprolol (3) Depression Current Visit: No Status: Acute Priority: High Code(s): F32.9 - MAJOR DEPRESSIVE DISORDER, SINGLE EPISODE, UNSPECIFIED Comment: - chronic (4) Electrolyte abnormality Current Visit: No Status: Acute Priority: High Code(s): E87.8 - OTH DISORDERS OF ELECTROLYTE AND FLUID BALANCE, NEC Comment: - Hypokalemia, severe - Hypomagnesemia, moderate - repletion underway (5) Fatigue Current Visit: No Status: Acute Priority: High Code(s): R53.83 - OTHER FATIGUE Comment: - secondary to acute illness (6) Severe protein-calorie malnutrition Current Visit: No Status: Acute Priority: High Code(s): E43 - UNSPECIFIED SEVERE PROTEIN-CALORIE MALNUTRITION Comment: - Cachetic - Nutrition consult, input requested. - restart regular diet (7) Cachexia Current Visit: No Status: Chronic Priority: High Code(s): R64 - CACHEXIA SNOMED Code(s): 229360540 Comment: - Nutrition consult requested
[2017-11-29] MEDS ORDERED: Metoprolol Tartrate IV* 1 MG/ML 5 ML VIAL IV ONE (18:30)
[2017-11-29] MEDS: CMC:Melatonin (NF) 3 MG TAB PO PRN (21:16)
[2017-11-29] MEDS: Zolpidem TAB* 5 MG PO PRN (21:16)
[2017-11-29 22:34] LABS: Urine Appearance Cloudy; Urine Blood Negative (Negative); Urine Color Amber; Urine Ketones Negative (Negative); Urine Protein 2+(100 mg/dL) (Negative); Urine Specific Gravity 1.027 (1.010-1.030); Urine Urobilinogen Negative (Negative)
[2017-11-30] MEDS: Acetaminophen TAB* 325 MG PO PRN (01:58)
[2017-11-30] MEDS: LORazepam TAB(*) 0.5 MG PO PRN (01:58)
[2017-11-30] MEDS: Levothyroxine TAB* 25 MCG TAB PO SCH (05:22)
[2017-11-30 05:35] LABS: ABS Basophils 0 10^3/ul (0-0.2); ABS Eosinophils 0.1 10^3/ul (0-0.6); ABS Lymphocytes 0.3 10^3/ul (1.0-4.8); ABS Monocytes 0.5 10^3/ul (0-0.8); ABS Neutrophils 11.9 10^3/ul (1.5-7.7); ABS Nucleated RBC 0 10^3/ul; Eosinophil % 0.5 % (0-6); Hematocrit 34 % (35-47); Hemoglobin 10.8 g/dl (12.0-16.0); Lymphocyte % 2.7 % (25-47); Mean Corpuscular HGB Conc 32 g/dl (31-36); Mean Corpuscular Hemoglobin 30 pg (27-31); Mean Corpuscular Volume 95 fL (80-97); Mean Platelet Volume 8.4 um3 (7.4-10.4); Nucleated Red Blood Cells % 0; Platelet Count 169 10^3/ul (150-450); Red Blood Count 3.57 10^6/ul (4.0-5.4); Red Cell Distribution Width 15 % (10.5-15); White Blood Count 12.8 10^3/ul (3.5-10.8)
[2017-11-30 07:13] LABS: EGFR Non-African American 64.7 (>60)
[2017-11-30] MEDS ORDERED: Metoprolol Succinate XL TAB* 25 MG PO SCH (09:00)
[2017-11-30] MEDS: buPROPion TAB* 75 MG PO SCH (09:08)
[2017-11-30] MEDS: Multivitamins/Minerals TAB PO SCH (09:08)
[2017-11-30] MEDS: Metoprolol Succinate XL TAB* 25 MG PO SCH (09:08)
[2017-11-30] MEDS: Vancomycin CAP* 125 MG CAP PO SCH ×4 (09:08→22:52)
[2017-11-30] MEDS: PARoxetine HCL TAB* 20 MG PO SCH (09:08)
[2017-11-30] MEDS: Aspirin 81 mg CHEW TAB* 81 MG TAB.CHEW PO SCH (09:08)
[2017-11-30] MEDS: Sodium Chloride TAB* 1 GM PO SCH ×2 (09:08→22:53)
[2017-11-30] MEDS: levETIRAcetam TAB* 500 MG PO SCH ×2 (09:08→22:42)
[2017-11-30] MEDS: Docusate CAP* 100 MG PO SCH (09:20)
--- NOTE | 2017-11-30 11:37 | RAD ---
HISTORY: Shortness of breath COMPARISONS: November 28, 2017 VIEWS: 1: frontal portable view of the chest at 10:52 AM FINDINGS: LINES AND TUBES: The left-sided pacemaker is noted. CARDIOMEDIASTINAL SILHOUETTE: The cardiomediastinal silhouette is normal for portable technique. PLEURA: There is a small right pleural effusion. LUNG PARENCHYMA: There is a diffuse reticular pattern with indistinct pulmonary vessels. ABDOMEN: The upper abdomen is clear. There is no subphrenic gas. BONES AND SOFT TISSUES: No bone or soft tissue abnormalities are noted. IMPRESSION: 1. PULMONARY INTERSTITIAL EDEMA. 2. SMALL RIGHT PLEURAL EFFUSION.
[2017-11-30] MEDS ORDERED: Furosemide IV* 10 MG/ML VIAL (40 MG) IV ONE ×2 (12:41→22:02)
--- NOTE | 2017-11-30 13:49 | ECHO ---
Patient: MERVAT GRULLON [facility] Rec#: [id number] : 1940 Date: 11/30/2017 Age: 77y Height: 167.6 cm / 66.0 in Weight: 35.4 kg / 78.0 lbs Sex: F BSA: 1.3 Room#: [facility] Admit Date#: 11/30/2017 Type: Inpatient Referring: Saul Crandall MD Reading: Liam Maldonado MD Card Feeder: Devika Patel RN RDCS CC: Tanmay Joseph MD Transthoracic Echocardiogram Indication: Shortness of breath BP: 123/62 HR: 116 Rhythm: A-Fib Findings History: CAD with MA and stents, pacemaker, HTN, HLD, lung cancer, former smoker, esophageal surgery for achalasia Technical Comments: The study is technically limited due to poor acoustic windows. The study is technically limited due to patient body habitus. The study is technically limited due to the patient's smoking history. The study was technically limited due to the patient's inability to lay in the left lateral decubitus position. The patient declined Definity for image enhancement. Left Ventricle: The left ventricular chamber size is decreased. There is increased basal septal hypertrophy noted without evidence of an increased gradient across the left ventricular outflow tract. Global left ventricular wall motion and contractility are within normal limits. There is normal left ventricular systolic function. The estimated ejection fraction is 55-60%. There is septal flattening of the interventricular septum consistent with right ventricular volume or pressure overload. The assessment of diastolic function is non-diagnostic. Left Atrium: The left atrial chamber size is normal. Right Ventricle: The right ventricular chamber size and systolic function are within normal limits. The right ventricular global systolic function is low normal. A pacemaker wire is visualized in the right ventricle. Right Atrium: The right atrial cavity size is normal. A pacemaker wire is visualized in the right atrium. Aortic Valve: The aortic valve is trileaflet. The aortic valve leaflets are mildly thickened. There is mild aortic regurgitation. There is no evidence of aortic stenosis. Mitral Valve: The mitral valve leaflets are mildly thickened. There is mild to moderate mitral regurgitation. There is no evidence of mitral stenosis. Tricuspid Valve: The tricuspid valve leaflets are normal. There is moderate tricuspid regurgitation. There is evidence of mild pulmonary hypertension. There is no tricuspid stenosis. Pulmonic Valve: The pulmonic valve structure is not well visualized. There is mild to moderate pulmonic regurgitation. There is no pulmonic stenosis. Pericardium: There is no significant pericardial effusion. A trivial pericardial effusion is visualized. Aorta: There is no dilatation of the ascending aorta. The aortic arch is not well visualized. There is no dilation of the aortic root. Pulmonary Artery: The main pulmonary artery is not well visualized. Venous: The inferior vena cava appears normal in size. There is less than 50% respiratory change in the inferior vena cava dimension. Conclusions The study is technically limited due to poor acoustic windows. The study is technically limited due to patient body habitus. The study is technically limited due to the patient's smoking history. The study was technically limited due to the patient's inability to lay in the left lateral decubitus position. The patient declined Definity for image enhancement. Global left ventricular wall motion and contractility are within normal limits. There is normal left ventricular systolic function. The estimated ejection fraction is 55-60%. A pacemaker wire is visualized in the right ventricle. A pacemaker wire is visualized in the right atrium. There is mild aortic regurgitation. There is mild to moderate mitral regurgitation. There is moderate tricuspid regurgitation. There is evidence of mild pulmonary hypertension. There is mild to moderate pulmonic regurgitation. The patient appears to be in a fast, irregularly irregular rhythm during this study. Compared to report of prior study from 03/25/2012 the degree of mitral reugrgitation has increased (was trace to mild). The degree of tricuspid regurgitation has increased (was mild). The degree of pulmonic regurgitation has increased (was trace to mild). The patient was in NSR during the prior test. Measurements Name Value Normal Range RVDdMajor (2D) 3.1 cm (2.2 - 4.4) RAd ISD 4CH 3.9 cm (3.4 - 4.9) RA (A4C)W 2.9 cm (2.9 - 4.6) IVSd (2D) 1 cm (0.6 - 1) LVPWd (2D) 1 cm (0.6 - 1) LVIDd (2D) 3.5 cm (3.6 - 5.4) LVIDs (2D) 2.3 cm - LV FS (2D) 33 % (25 - 45) Aortic Annulus 1.5 cm (1.4 - 2.6) Ao root diameter (2D) 3 cm (2.1 - 3.5) Ascending Ao 2.3 cm (2.1 - 3.4) LA dimension (AP) 2D 2.6 cm (2.3 - 3.8) LAd ISD 4CH 3.6 cm (2.9 - 5.3) LA ISD 4CH W 4.1 cm (2.5 - 4.5) Name Value Normal Range MV E-wave Vmax 0.96 m/sec - MV deceleration time 117 msec - LV septal e' Vmax 0.09 m/sec - LV lateral e' Vmax 0.09 m/sec - LV E:e' septal ratio 10.7 ratio - LV E:e' lateral ratio 10.7 ratio - Name Value Normal Range AV Vmax 0.79 m/sec - AV peak gradient 2.5 mmHg - LVOT Vmax 0.58 m/sec - LVOT VTI 9.5 cm - LVOT peak gradient 1.3 mmHg - LVOT mean gradient 0.7 mmHg - Name Value Normal Range TR Vmax 2.8 m/sec - TR peak gradient 31 mmHg - RAP 8 mmHg - RVSP 39 mmHg - IVC diameter 1.1 cm - Name Value Normal Range PV Vmax 0.5 m/sec -
--- NOTE | 2017-11-30 14:30 | PN ---
Progress Note - Progress Note Date of Service: 11/30/17 SOAP: Subjective: CC: Cdif HPI: 77 year old woman with severe diarrhea, continues to have liquid stool, denies abd pain. She has had worsening dyspnea and is to be transferred to the ICU. She has some cough, no chest pain. Objective: Vital Signs Temp 36.6 C 11/30/17 12:19 Pulse 137 11/30/17 12:19 Resp 28 11/30/17 12:19 BP 150/107 11/30/17 12:19 Pulse Ox 97 11/30/17 12:19 Intake & Output 11/29/17 11/30/17 11/30/17 18:59 06:59 18:59 Intake Total 2819 724 50 Output Total 250 150 Balance 2819 474 -100 Intake: IV Fluids 1330 ns 1330 IVPB 999 524 LR 999 potassium 524 Oral 490 200 50 Output: Urine 100 150 Liquid Stool 150 Other: Estimated Void Medium Small # Bowel Movements 1 3 Estimated Stool Amount Medium Large # Voids 1 2 Gen:awake, 2 word dyspnea HEENT:PERRL, MMM Heart:RRR no murmur Lungs: decr BS at bases Abd:+BS NTND soft Skin: no rash MSK: no spine tenderness Microbiology 11/28/17 17:00 Stool Stool Culture - Final 11/28/17 17:00 Stool Stool Gross Appearance - Final 11/28/17 17:00 Stool Shiga Toxin I & II - Final Negative Shiga Toxin 1 & 2 11/28/17 17:00 Stool C. difficile DNA Amplification - Final 027 Presumptive NEGATIVE Toxigenic C.diff POSITIVE 11/28/17 17:35 Blood Venous Aerobic Blood Culture - Preliminary No Growth Day 1 11/28/17 17:35 Blood Venous Anaerobic Blood Culture - Preliminary No Growth Day 1 11/28/17 17:35 Blood Venous Aerobic Blood Culture - Preliminary No Growth Day 1 11/28/17 17:35 Blood Venous Anaerobic Blood Culture - Preliminary No Growth Day 1 Assessment: 1. Cdif colitis; WBC improving, diarrhea continues abd is benign 2. Dyspnea, underlying COPD ?pulmonary edema on CXR 3. lung cancer s/p lobectomy Plan: 1. continue po vancomycin and follow abd exam, stool frequency which may be a few days before improving. We discussed ischemic bowel which is a consideration but she denies pain; lactic acid with blood draw. 2. Dyspnea workup per Dr Crandall
[2017-11-30] MEDS ORDERED: Sodium Bicarbonate 8.4% IV* 50 ML VIAL IV ONE (15:05)
[2017-11-30] MEDS ORDERED: Metoprolol Tartrate IV* 1 MG/ML 5 ML VIAL IV ONE (15:06)
[2017-11-30] MEDS: Enoxaparin(*) 40 MG/0.4 ML SYR SUBCUT SCH (15:27)
--- NOTE | 2017-11-30 17:41 | RAD ---
INDICATION: PICC line placement on the left COMPARISON: Most recent comparison chest x-ray from the same date acquired at 1049 hours TECHNIQUE: Single AP portable view of the chest was obtained at 1722 hours. FINDINGS: Image quality is compromised due to the relative inferiority of a portable chest x-ray. There is been interval placement of a left-sided PICC line with the tip terminating at the expected location of the left brachiocephalic vein. There is mild cardiomegaly with coarse calcification overlying the arch of the aorta. Patchy densities are seen overlying the bilateral lung similar in appearance to the previous chest x-ray. There is relatively reduced lung volume at the right lung relative to the left, also stable compared to the previous chest x-ray. Visualized bones are normal for the patient's age. IMPRESSION: Interval placement of a left-sided PICC line with the tip terminating at the expected location of the left brachiocephalic vein.
[2017-11-30] MEDS: Diltiazem IV* 5 MG/ML 5 ML VIAL (for loading dose/IV Push) (25 MG) IV SLOW PU SCH (18:13)
[2017-11-30] MEDS: Morphine INJ* 2 MG/ML 1 ML CARPUJECT IV PRN (20:54)
--- NOTE | 2017-11-30 21:02 | RAD ---
INDICATION: Adjustment of the left-sided PICC line COMPARISON: Same day chest x-ray acquired at 1722 hours TECHNIQUE: Single AP portable view of the chest was obtained at 2017 hours. FINDINGS: Image quality is compromised due to the relative inferiority of a portable chest x-ray. The PICC line has been advanced and is now terminating at the superiormost portion of the superior vena cava. Over the course of the left subclavian and left brachiocephalic vein, the PICC line is somewhat redundant. IMPRESSION: PICC line now terminates at the superiormost portion of the superior vena cava.
--- NOTE | 2017-11-30 22:00 | PN ---
Subjective Date of Service: 11/30/17 Interval History: . ongoing copious diarrhea family concerned ongoing tachycardia --> atrial fibrillation (new) transfer to ICU and PICC placement (upgrade from midline) rectal tube and flores placed to better assess and replace fluid losses family updated frequently fluid overloaded mid-day lasix ordered will restart fluids slowly after stabilization SQ lovenox started IV dilt Q6 started for HR control regular diet available, though poor appetite. Family History: Unchanged from Admission Social History: Unchanged from Admission Past Medical History: Unchanged from Admission Objective Active Medications: . Acetaminophen (Tylenol Tab*) 650 mg PO Q4H PRN PRN Reason: FEVER/PAIN Last Admin: 11/30/17 01:58 Dose: 650 mg Acetaminophen/Codeine Phosphate (Tylenol/Codeine 30 Mg Tab*) 1 tab PO Q12H PRN PRN Reason: PAIN Aspirin (Aspirin Low Dose Tab*) 81 mg PO QAM [facility] Last Admin: 11/30/17 09:08 Dose: 81 mg Bupropion HCl (Wellbutrin Tab*) 75 mg PO DAILY [facility] Last Admin: 11/30/17 09:08 Dose: 75 mg Diltiazem HCl (Diltiazem Iv*) 10 mg IV SLOW PU Q6HR [facility] Last Admin: 11/30/17 18:13 Dose: 10 mg Docusate Sodium (Colace Cap*) 100 mg PO DAILY [facility] Last Admin: 11/30/17 09:20 Dose: Not Given Enoxaparin Sodium (Lovenox(*)) 40 mg SUBCUT Q12H [facility] Last Admin: 11/30/17 15:27 Dose: 40 mg Heparin Sodium (Porcine) (Heparin Flush Picc/Ml/Cvc(*)) 1 - 3 ml FLUSH 0600, 1800 [facility] PRN Reason: Protocol Levetiracetam (Keppra Tab*) 500 mg PO BID [facility] Last Admin: 11/30/17 09:08 Dose: 500 mg Levothyroxine Sodium (Synthroid Tab*) 25 mcg PO 0600 [facility] Last Admin: 11/30/17 05:22 Dose: 25 mcg Lorazepam (Ativan Tab(*)) 0.5 mg PO TID PRN PRN Reason: ANXIETY Last Admin: 11/30/17 01:58 Dose: 0.5 mg Melatonin (Melatonin (Nf)) 3 mg PO BEDTIME PRN; Protocol PRN Reason: Sleep Last Admin: 11/29/17 21:16 Dose: 3 mg Metoprolol Succinate (Toprol Xl Tab*) 50 mg PO DAILY [facility] Last Admin: 11/30/17 09:08 Dose: 50 mg Morphine Sulfate (Morphine Inj (Syringe)*) 2 mg IV Q2H PRN PRN Reason: PAIN - MILD Last Admin: 11/30/17 20:54 Dose: 2 mg Multivitamins/Minerals (Theragran/Minerals Tab*) 1 tab PO DAILY [facility] Last Admin: 11/30/17 09:08 Dose: Not Given Nicotine Polacrilex (Nicotine Gum*) 2 mg PO Q2H PRN PRN Reason: CRAVING Nf: (Orphenadrine Citrate [ Orphenadrine Citrate ] 100 Mg) 100 mg PO BID PRN PRN Reason: HEADACHE/DISCOMFORT Paroxetine HCl (Paxil Tab*) 20 mg PO DAILY [facility] Last Admin: 11/30/17 09:08 Dose: 20 mg Sodium Chloride (Sodium Chloride Tab*) 1 gm PO BID [facility] Last Admin: 11/30/17 09:08 Dose: 1 gm Vancomycin HCl (Vancomycin Cap*) 125 mg PO QID [facility] Last Admin: 11/30/17 20:41 Dose: Not Given Zolpidem Tartrate (Ambien Tab*) 5 mg PO BEDTIME PRN PRN Reason: SLEEP Last Admin: 11/29/17 21:16 Dose: 5 mg Vital Signs - 8 hr 11/30/17 11/30/17 11/30/17 14:43 14:45 14:46 Temperature 98.7 F Pulse Rate 139 140 114 Respiratory 27 35 33 Rate Blood Pressure 140/114 165/89 165/89 (mmHg) O2 Sat by Pulse 93 95 98 Oximetry 11/30/17 11/30/17 11/30/17 15:00 15:07 15:15 Temperature Pulse Rate 137 121 119 Respiratory 16 32 33 Rate Blood Pressure 214/198 133/99 (mmHg) O2 Sat by Pulse 79 93 93 Oximetry 11/30/17 11/30/17 11/30/17 15:47 16:00 16:02 Temperature Pulse Rate 116 122 117 Respiratory 25 27 27 Rate Blood Pressure 119/71 187/141 (mmHg) O2 Sat by Pulse 93 95 96 Oximetry 03/27/18 03/27/18 03/27/18 16:16 16:32 17:00 Temperature Pulse Rate 147 146 147 Respiratory 26 33 29 Rate Blood Pressure 139/124 156/147 (mmHg) O2 Sat by Pulse 96 95 Oximetry 11/30/17 11/30/17 11/30/17 17:01 17:16 18:00 Temperature Pulse Rate 138 134 134 Respiratory 41 29 41 Rate Blood Pressure 133/107 138/99 (mmHg) O2 Sat by Pulse 89 85 100 Oximetry 11/30/17 11/30/17 11/30/17 18:01 18:15 18:22 Temperature Pulse Rate 118 130 95 Respiratory 35 30 39 Rate Blood Pressure 140/89 138/120 (mmHg) O2 Sat by Pulse 100 88 95 Oximetry 11/30/17 11/30/17 11/30/17 18:33 19:00 19:31 Temperature Pulse Rate 107 121 117 Respiratory 40 46 16 Rate Blood Pressure 121/76 107/85 (mmHg) O2 Sat by Pulse 98 97 98 Oximetry 11/30/17 11/30/17 11/30/17 20:00 20:01 20:54 Temperature Pulse Rate 125 115 Respiratory 37 36 38 Rate Blood Pressure 137/80 (mmHg) O2 Sat by Pulse 100 100 Oximetry Oxygen Devices in Use Now: Nasal Cannula Appearance: ill appearing; cachectic. Eyes: PERRLA Ears/Nose/Mouth/Throat: Clear Oropharnyx, - - dry MM Neck: Trachea Midline Respiratory: Symmetrical Chest Expansion and Respiratory Effort - some rales at bases mid-day today Cardiovascular: - - tachy; irr irr. (c.w. AF) Abdominal: NL Sounds; No Tenderness; No Distention Lymphatic: No Cervical Adenopathy Extremities: No Edema Skin: No Rash or Ulcers Neurological: Alert and Oriented x 3 Lines/Tubes/Other Access: Clean, Dry and Intact Peripheral IV Nutrition: Taking PO's Result Diagrams: 11/30/17 05:17 11/30/17 06:47 Assess/Plan/Problems-Billing . Assessment: 77 yo female with multiple medical problems, s/p URI and abx recently, now with C. Diff colitis. Severe hypokalemia, ARF, hyponatremia, metabolic acidosis secondary to illness. . - Patient Problems (1) C. difficile colitis Current Visit: Yes Status: Acute Priority: High Comment: - ID consultation appreciated; Vanco 125 mg PO QID ongoing - IVF - currently on hold for fluid overload - Aggressive K repletion - 4.6 11/30; rechecking daily. - noted metabolic acidosis c/w bicarb losses from GI tract --> 1 amp bicarb given 11/30 - hypokalemia and hyponatremia secondary to GI losses. (2) Afib Current Visit: No Status: Acute Priority: High Code(s): I48.91 - UNSPECIFIED ATRIAL FIBRILLATION Comment: - Rate controlled after IVF - Continue metoprolol / added diltiazem Q6 (IV) - lovenox for AC...I wonder if she will convert outside of her acute illness - TTE noted. (3) Depression Current Visit: No Status: Acute Priority: High Code(s): F32.9 - MAJOR DEPRESSIVE DISORDER, SINGLE EPISODE, UNSPECIFIED Comment: - continue effexor and paxil as per op regimen. (4) Electrolyte abnormality Current Visit: No Status: Acute Priority: High Code(s): E87.8 - OTH DISORDERS OF ELECTROLYTE AND FLUID BALANCE, NEC Comment: - Hypokalemia, severe - Hypomagnesemia, moderate - Repletion underway; daily labs (5) Fatigue Current Visit: No Status: Acute Priority: High Code(s): R53.83 - OTHER FATIGUE Comment: - secondary to acute illness (6) Severe protein-calorie malnutrition Current Visit: No Status: Acute Priority: High Code(s): E43 - UNSPECIFIED SEVERE PROTEIN-CALORIE MALNUTRITION Comment: - Cachetic - Nutrition consult, input requested. - restart regular diet (7) Cachexia Current Visit: No Status: Chronic Priority: High Code(s): R64 - CACHEXIA SNOMED Code(s): 554612347 Comment: - Nutrition consult requested (8) Seizure disorder Current Visit: Yes Status: Acute Code(s): G40.909 - EPILEPSY, UNSP, NOT INTRACTABLE, WITHOUT STATUS EPILEPTICUS Comment: - keppra as per op regimen (9) Hypothyroidism Current Visit: Yes Status: Chronic Priority: High Code(s): E03.9 - HYPOTHYROIDISM, UNSPECIFIED Comment: - check TSH - continue replacement with current dose of synthroid for now
[2017-11-30] MEDS ORDERED: Magnesium Sulf 4 GM/100 ML IV* 4,000 MG/100 ML BAG IVPB ONE (22:04)
[2017-11-30] MEDS ORDERED: KCL 20 MEQ/100 ML IVPREMIX* 20 MEQ/100 ML BAG IV SCH (23:00)
[2017-11-30] MEDS ORDERED: Potassium Chloride IV* 40 MEQ in NS 0.9% 250 ML* 250 ML IVPB ONE (23:00)
[2017-11-30] MEDS ORDERED: levETIRAcetam 500 MG IVPREMIX* 500 MG/100 ML BAG IV ONE (23:45)
[2017-12-01] MEDS: levETIRAcetam TAB* 500 MG PO SCH (00:30)
[2017-12-01] MEDS: Vancomycin CAP* 125 MG CAP PO SCH (00:30)
[2017-12-01] MEDS: Morphine INJ* 2 MG/ML 1 ML CARPUJECT IV PRN ×3 (00:43→11:07)
[2017-12-01] MEDS: Diltiazem IV* 5 MG/ML 5 ML VIAL (for loading dose/IV Push) (25 MG) IV SLOW PU SCH ×2 (00:44→06:00)
[2017-12-01] MEDS: NS 0.9% 250 ML* 246 ML with Norepinephrine VIAL* 4 MG IV SCH ×4 (01:41→09:34)
--- NOTE | 2017-12-01 03:42 | PN ---
Progress Note - Progress Note Date of Service: 12/01/17 Note: Nursing called reporting significant decrease in mentation. Previously had become hypotensive in setting of having had volume overload requiring diuresis yesterday mid-day stabilized with addition of norepinephrine GTT. Upon arrival, Mrs Honeycutt is unresponsive to noxious stimuli, GCS 3. SaO2 is mid-80s on 15L [place] AND 15L oxymask. MOLST reviewed, confirmed DNR/I. Switched to BiPap. Upgraded to Vapotherm with resulting decrease in saO2 to the low 80s. BP 80/ 50s. Moderate respiratory accessory muscle use. Early mottling around B knees which are cold to touch. Thready pulse in the low 100s showing AFLUT on the monitor. Lungs reveal upper airway gurgling, poor inspiratory effort. CV: mildly tachycardic, JVD up to the angle of the mandible at ~60 degrees. Abdomen : soft. Extremities: cold, early mottling as above Given constellation of rapidly deteriorating condition despite significant escalation to maximum medical management allowed by JONAH of multiple severe co- morbid illnesses (C-diff colitis, volume overload, AFIB/AFLUT, severe protein calorie malnutrition, etc), Mrs Honeycutt's overall prognosis at this time is terminal. Assessment: plan C difficile colitis w/ severe septic shock in setting of volume overload : 1g IV vancomycin in least fluid possible : as we cannot further escalate her medical treatment, labwork would not be of benefit : nursing updated family who are on their way in : patient appears to be actively expiring and son were updated at the bedside upon arrival. Questions sought/ answered to their satisfaction. They appear to be accepting and have realistic expectations.
[2017-12-01] MEDS ORDERED: Vancomycin(*) 1,000 MG in NS 0.9% 250 ML* 250 ML IVPB ONE (05:30)
[2017-12-01] MEDS: Enoxaparin(*) 40 MG/0.4 ML SYR SUBCUT SCH (05:59)
[2017-12-01] MEDS: Levothyroxine TAB* 25 MCG TAB PO SCH (06:00)
[2017-12-01] MEDS ORDERED: Levothyroxine INJ* 100 MCG/5 ML VIAL IV SCH (06:00)
--- NOTE | 2017-12-01 08:07 | RAD ---
INDICATION: Short of breath COMPARISON: November 30, 2017 TECHNIQUE: An AP portable view obtained at 0725 hours is submitted. FINDINGS: Bones/Soft Tissues: There are overlying chest leads. There is a dual lead left-sided cardiac pacemaker. A left-sided PICC catheter terminates in the superior vena cava and is unchanged in position. A nasogastric tube passes normally through the mediastinum. Cardiomediastinal: The heart is normal in size. Central pulmonary vessels are prominent. Lungs: There is bibasilar infiltrative change with worsening the right lung base. Pleura: Small bilateral effusions. Other: None IMPRESSION: MILD INTERSTITIAL CONGESTION WITH BASILAR INFILTRATES WITH WORSENING AERATION OF THE THE RIGHT LUNG BASE. SMALL BILATERAL EFFUSIONS
[2017-12-01] MEDS ORDERED: levETIRAcetam 500 MG IVPREMIX* 500 MG/100 ML BAG IV SCH (09:00)
[2017-12-01] MEDS ORDERED: metroNIDAZOLE IV 500 MG/100ML* 500 MG/100 ML BAG IVPB SCH (10:00)
[2017-12-01] MEDS ORDERED: Morphine INJ* 2 MG/ML 1 ML CARPUJECT ONE (11:05)
[2017-12-01] MEDS ORDERED: Morphine INJ* 4 MG/ML 1 ML SYRINGE (NEW SYRINGE VERSION) ONE (11:05)
[2017-12-01 11:19] VITALS: BP 46/27
--- NOTE | 2017-12-02 07:55 | DS ---
SUMMARY: DATE OF ADMISSION: 11/28/17 DATE OF EXPIRY: 12/01/17 HOSPITAL COURSE: This patient is a 77-year-old white female who has been chronically ill with multiple medical problems including lung cancer, achalasia , epilepsy, and hypertension, who was admitted on 11/28/17 because of nausea, vomiting, and diarrhea. Subsequent workup revealed Clostridium difficile enterocolitis and probable E. coli urinary tract infection. The patient was placed on oral vancomycin for the C. diff and Zosyn for the urinary tract infection and the clinical condition initially stabilized. However, patient was brought to the intensive care unit on 11/30/17 because of hemodynamic instability and a depressed mental status. She was given fluids without correction of the hypotension, and she was subsequently placed on vasopressor therapy. As the patient was a DNR and DNI, BiPAP was used for ventilatory support. The patient's hemodynamic status continued to deteriorate despite increasing doses of vasopressor agents and volume infusion. In the afternoon of 12/01/17, the cardiac rhythm deteriorated to asystole, and and the patient was pronounced at 12:25 p.m. The patient's and brother were present at the bedside. Autopsy was denied. FINAL DIAGNOSES: 1. Septic shock. 2. Clostridium difficile enterocolitis. 3. E. coli urinary tract infection. 4. General debility. 5. Lung cancer, status post resection surgery. 6. Achalasia, status post corrective surgery. 7. Malnutrition. CRITICAL CARE TIME: 30 minutes. [id number] #: [id number] MTDD
== END 2017-12-01 12:25 | disposition expired | DRG 871 ==
LOC: ED 16:08 → MED 18:05 → MEDTELE 20:07 → ICU 11-30 13:10
PROVIDERS: ADMIT Internal Medicine; ATTEND Internal Medicine Critical Care Medicine
PROC: 05HA33Z Insertion of Infusion Device into Left Brachial Vein, Percutaneous Approach (ICD-10-PCS; principal; 2017-11-30)
PROC: 5A09457 Assistance with Respiratory Ventilation, 24-96 Consecutive Hours, Continuous Positive Airway Pressure (ICD-10-PCS; 2017-12-01)
DX: A41.9 Sepsis, unspecified organism (principal); R65.21 Severe sepsis with septic shock; E43 Unspecified severe protein-calorie malnutrition; A04.72 Enterocolitis due to Clostridium difficile, not specified as recurrent; N39.0 Urinary tract infection, site not specified; Z68.1 Body mass index [BMI] 19.9 or less, adult; E87.2 Acidosis; N17.9 Acute kidney failure, unspecified; E87.1 Hypo-osmolality and hyponatremia; R64 Cachexia; B96.20 Unspecified Escherichia coli [E. coli] as the cause of diseases classified elsewhere; G40.909 Epilepsy, unspecified, not intractable, without status epilepticus; E78.5 Hyperlipidemia, unspecified; E03.9 Hypothyroidism, unspecified; I25.10 Atherosclerotic heart disease of native coronary artery without angina pectoris; I11.9 Hypertensive heart disease without heart failure; E86.1 Hypovolemia; I95.9 Hypotension, unspecified; E87.6 Hypokalemia; E83.42 Hypomagnesemia; J44.9 Chronic obstructive pulmonary disease, unspecified; R10.31 Right lower quadrant pain; Z66 Do not resuscitate; R06.02 Shortness of breath; W18.30XA Fall on same level, unspecified, initial encounter; Y92.009 Unspecified place in unspecified non-institutional (private) residence as the place of occurrence of the external cause; Z95.5 Presence of coronary angioplasty implant and graft; Z79.1 Long term (current) use of non-steroidal anti-inflammatories (NSAID); Z79.82 Long term (current) use of aspirin; Z79.899 Other long term (current) drug therapy; Z82.49 Family history of ischemic heart disease and other diseases of the circulatory system; Z85.3 Personal history of malignant neoplasm of breast
CPT/HCPCS: 36415; 71045; 74177; 80048; 80053; 81003; 81015; 82803; 83605; 83735; 84100; 84443; 84484; 85025; 85610; 85730; 87040; 87045; 87046; 87077; 87086; 87186; 87493; 87899; 93005; 93306; 94660; 94760; 99284; A9270-GY; C1751; J1650; J1940; J2270; J3370; J3475; J3480; J3490; Q9967